=== PATIENT | male | born 1975 | race African-American/Black ===

== ENCOUNTER 2017-05-28 11:53 | Observation (INO) | payer OTHER ==
[~2017-05-28] VITALS: Ht 190.5 cm; Wt 114.3 kg
[2017-05-28] MEDS ORDERED: PANTOprazole SOD 40 MG TAB PO STA (12:14)
[2017-05-28] MEDS ORDERED: ASPIRIN 81 MG CHEW PO STA (12:14)
[2017-05-28] MEDS ORDERED: NITROGLYCERIN OINT 2% 1GM PACKET EXT ONE (12:15)
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
[2017-05-28] MEDS ORDERED: CLON0.5T3 PO (12:40)
[2017-05-28] MEDS ORDERED: SERT50TA PO (12:40)
[2017-05-28] MEDS ORDERED: HALO5TAB PO (12:40)
[2017-05-28] MEDS ORDERED: BENZ2TAB6 PO (12:40)
[2017-05-28] MEDS ORDERED: ASPCH81X PO (12:40)
[2017-05-28] MEDS ORDERED: ATEN50TA8 PO (12:40)
[2017-05-28] MEDS ORDERED: SERT-234 PO (12:40)
[2017-05-28] MEDS ORDERED: HALO2TAB PO (12:40)
[2017-05-28 12:41] LABS: HEMATOCRIT 38.4 % (42-52); MEAN CELL VOLUME 88.9 fL (80-100); MEAN CORPUSCULAR HEMOGLOBIN 31.5 pg (25-34); MEAN CORPUSCULAR HGB CONC 35.4 g/dl (32-36); MEAN PLATELET VOLUME 9.7 fL (7.4-10.4); PLATELET COUNT 283 K/uL (130-400); RED BLOOD COUNT 4.32 M/uL (4.7-6.1); WHITE BLOOD COUNT 5.18 K/uL (4.8-10.8)
[2017-05-28 12:51] LABS: PARTIAL THROMBOPLASTIN RATIO 1.2; PROTHROMBIN TIME (PATIENT) 10.6 SECONDS (9.0-12.0)
[2017-05-28 13:01] LABS: ALT/SGPT 33 U/L (12-78); AST/SGOT 20 U/L (15-37); BLOOD UREA NITROGEN 11 mg/dl (7-18); BUN/CREATININE RATIO 14.5 (10-20); CARBON DIOXIDE 31 mmol/L (21-32); CHLORIDE 106 mmol/L (98-107); CREATININE 0.76 mg/dl (0.60-1.40); GLUCOSE 78 mg/dl (70-99); POTASSIUM 3.4 mmol/L (3.5-5.1); SODIUM 143 mmol/L (136-145)
[2017-05-28 13:05] LABS: ALKALINE PHOSPHATASE 126 U/L (45-117); CKMB/CK RATIO 0.4 (0-3.0)
[2017-05-28 13:14] LABS: COMPLETE YES; EOSINOPHIL % 1.7 %; LYMPH ABS # 2.39 K/uL (1.2-3.4); LYMPHOCYTE % 46.1 %; NEUTROPHILS % 36.5 %; VARIANT LYM ABS # 0.63 K/uL; VARIANT LYMPHOCYTE % 12.2 %
--- NOTE | 2017-05-28 13:16 | DIAGNOSTIC IMAGING REPORT ---
CHEST ONE VIEW PORTABLE HISTORY: Atypical CHEST PAIN COMPARISON: None. FINDINGS: The lungs are clear. Cardiac silhouette is normal in size. No pleural effusions. No pneumothorax. IMPRESSION: No acute process. Electronically signed by: Vicente Julien M.D. 05/28/2017 1:15 PM Dictated Date/Time: 05/28/2017 1:12 PM
[2017-05-28] MEDS ORDERED: GLUCAGON FOR INJ 1 MG VIAL SQ PRN (14:00)
[2017-05-28] MEDS ORDERED: POLYETHYLENE (MIRALAX) 17 GM PACK PO PRN (14:00)
[2017-05-28] MEDS ORDERED: GLUCOSE 40% GEL 15 GM TUBE PO PRN (14:00)
[2017-05-28] MEDS ORDERED: GLUCOSE 10 TABS/TUBE PO PRN (14:00)
[2017-05-28] MEDS ORDERED: MAGNESIUM HYDROXIDE SUSP 30 ML UDC PO PRN (14:00)
[2017-05-28] MEDS ORDERED: DEXTROSE 50% 50 ML SYR IV PRN (14:00)
[2017-05-28] MEDS ORDERED: ONDANSETRON INJ 2 MG/ML 2 ML VIAL IV PRN (14:00)
--- NOTE | 2017-05-28 14:04 | History and Physical ---
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 It was a sharp substernal chest pain which created numbness and tingling down into the left arm, the pain lasted a few minutes and subsided when he went to his cell and layed down. He denies any radiation to the jaw, back or right arm. He admits to having a headache after this pain occurred throughout the morning. The patient mops as a daily occurrence, and is physically active with lifting weights, >225lbs on bench press and has never experienced this chest pain before. Pt reports that he had a second bout of pain while here but was not as severe and did not radiate anywhere. His mother at age 32 from [place]. He is unaware of any of her siblings with similar cardiac disease. He has three other siblings but does not know if they have cardiac disease either. Here in the ER his initial troponin is negative at 0.032, EKG was reviewed without signs of ischemia, although there was reported [facility]. Past Medical/Surgical History HTN DM II Bipolar disorder with psychotic features Anxiety Chronic tobacco smoker Family History Heart disease Social History Smoking Status: Current Every Day Smoker Drug Use: none Marital Status: single Occupational Status: unemployed Allergies Coded Allergies: No Known Allergies (Unverified , 05/28/17) Home Medications Scheduled Aspirin (Aspirin Chewable), 81 MG PO DAILY Atenolol (Tenormin), 50 MG PO DAILY Benztropine Mesylate (Benztropine Mesylate), 1 TAB PO HS Clonazepam (Klonopin), 1 MG PO HS Haloperidol (Haloperidol), 1 TAB PO HS Haloperidol (Haldol), 1 TAB PO HS Sertraline (Zoloft), 100 MG PO HS Sertraline (Zoloft), 1 TAB PO HS Review of Systems Constitutional: + problem reported (headache), No fever, No chills, No sweats Eyes: No worsening of vision, No diplopia ENT: No hearing loss Respiratory: No cough, No sputum, No wheezing, No shortness of breath, No dyspnea on exertion, No dyspnea at rest Cardiovascular: No chest pain, No edema, No palpitations Abdomen: No pain, No nausea, No vomiting, No diarrhea, No constipation (last BM was yesterday) Musculoskeletal: No joint pain, No swelling, No calf pain Genitourinary - Male: No hematuria, No dysuria Neurologic: + numbness/tingling (see HPI), No weakness, No balance problems Psychiatric: + anxiety, + problem reported (bipolar disorder) Integumentary: No rash, No itch Physical Exam Vital Signs Date Time Temp Pulse Resp B/P (MAP) Pulse Ox O2 Delivery O2 Flow Rate FiO2 05/28/17 12:58 59 15 172/121 99 05/28/17 12:53 60 18 99 05/28/17 12:38 62 21 98 05/28/17 12:25 98 Room Air 05/28/17 12:23 63 17 98 05/28/17 12:18 99 Room Air 05/28/17 12:17 99 Room Air 05/28/17 12:17 99 Room Air 05/28/17 12:15 61 05/28/17 12:08 185/117 05/28/17 11:58 37.1 63 16 179/102 98 Room Air General Appearance: WD/WN, no apparent distress Head: normocephalic, atraumatic Eyes: PERRL, EOMI ENT: hearing grossly normal, pharynx normal Neck: supple, thyroid normal Respiratory/Chest: chest non-tender, lungs clear, no respiratory distress, no accessory muscle use Cardiovascular: regular rate, rhythm, no murmur Abdomen/GI: normal bowel sounds, non tender, soft Back: normal inspection, no CVA tenderness Extremities/Musculoskelatal: normal inspection, no calf tenderness Neurologic/Psych: alert, normal mood/affect, oriented x 3 Skin: normal color, warm/dry Diagnostics Laboratory Results Results Past 24 Hours Test 05/28/17 12:15 Range/Units White Blood Count 5.18 4.8-10.8 K/uL Red Blood Count 4.32 4.7-6.1 M/uL Hemoglobin 13.6 14.0-18.0 g/dL Hematocrit 38.4 42-52 % Mean Corpuscular Volume 88.9 80-100 fL Mean Corpuscular Hemoglobin 31.5 25-34 pg Mean Corpuscular Hemoglobin Concent 35.4 32-36 g/dl Platelet Count 283 130-400 K/uL Mean Platelet Volume 9.7 7.4-10.4 fL RDW Standard Deviation 44.7 36.4-46.3 fL RDW Coefficient of Variation 13.5 11.5-14.5 % Neutrophils % (Manual) 36.5 % Lymphocytes % (Manual) 46.1 % Variant Lymphocytes % (manual) 12.2 % Monocytes % (Manual) 3.5 % Eosinophils % (Manual) 1.7 % Neutrophils # (Manual) 1.89 1.4-6.5 K/uL Total Absolute Neutrophils 1.89 1.4-6.5 K/uL Lymphocytes # (Manual) 2.39 1.2-3.4 K/uL Absolute Variant Lymphocytes 0.63 K/uL Total Absolute Lymphocytes 3.02 1.2-3.4 K/uL Monocytes # (Manual) 0.18 0.11-0.59 K/uL Eosinophils # (Manual) 0.09 0-0.5 K/uL Red Blood Cell Morphology Unremarkable Prothrombin Time 10.6 9.0-12.0 SECONDS Prothromb Time International Ratio 1.0 0.9-1.1 Activated Partial Thromboplast Time 31.2 21.0-31.0 SECONDS Partial Thromboplastin Ratio 1.2 Sodium Level 143 136-145 mmol/L Potassium Level 3.4 3.5-5.1 mmol/L Chloride Level 106 98-107 mmol/L Carbon Dioxide Level 31 21-32 mmol/L Anion Gap 6.0 3-11 mmol/L Blood Urea Nitrogen 11 7-18 mg/dl Creatinine 0.76 0.60-1.40 mg/dl Est Creatinine Clear Calc Drug Dose 173.2 ml/min Estimated GFR () 129.5 Estimated GFR (Non- 111.7 BUN/Creatinine Ratio 14.5 10-20 Random Glucose 78 70-99 mg/dl Calcium Level 9.0 8.5-10.1 mg/dl Total Bilirubin 0.4 0.2-1 mg/dl Direct Bilirubin < 0.1 0-0.2 mg/dl Aspartate Amino Transf (AST/SGOT) 20 15-37 U/L Alanine Aminotransferase (ALT/SGPT) 33 12-78 U/L Alkaline Phosphatase 126 45-117 U/L Total Creatine Kinase 167 39-308 U/L Creatine Kinase MB 0.7 0.5-3.6 ng/ml Creatine Kinase MB Ratio 0.4 0-3.0 Troponin I 0.032 0-0.045 ng/ml Total Protein 7.5 6.4-8.2 gm/dl Albumin 3.5 3.4-5.0 gm/dl Lipase 170 73-393 U/L Diagnostic Radiology CHEST ONE VIEW PORTABLE HISTORY: Atypical CHEST PAIN COMPARISON: None. FINDINGS: The lungs are clear. Cardiac silhouette is normal in size. No pleural effusions. No pneumothorax. IMPRESSION: No acute process. Electronically signed by: Vicente Julien M.D. 05/28/2017 1:15 PM Dictated Date/Time: 05/28/2017 1:12 PM The status of this report is Signed. 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 Chest pain - Admit to tele for observation - Trend cardiac biomarkers x 2 more sets. Initial troponin was 0.032 - Check lipid panel - 2D echo - EKG reviewed showing no signs of ischemia currently, although per report from inferior and lateral T wave inversion on ekg at [facility] - follow am EKG - Cont nitropaste Q6H for now - headache was present prior to administration of nitro - Received asa 324 mg in the ED, continue home meds of ASA 81 mg QAM and atenolol 50 mg QAM DM II - ISS with accuchecks Q6H while NPO or Q4H with diet ordered - not on any medications as an outpatient for insulin control - Checking Hgb A1C - Allow diabetic/heart healthy diet HTN - Continue on atenolol 50 mg daily - BP very high initially so will order hydralazine prn with parameters. Bipolar disorder with psychotic features Anxiety - Continue sertraline 150 mg QHS, haldol 7 mg QHS and clonazepam 1 mg QHS for sleep - Pt reports taking cogentin but unknown dose- will need to add this to med rec list. - Has hx of auditory and visual hallucinations when not on medications but has been stable recently. Denies any suicidal or homicial ideations DVT ppx: Teds, scds, heparin subq CODE STATUS: FULL CODE Disposition: Return to [facility] when medically stable. I agree with PA assessment and plan Noted accelerated HTN Hydralazine PRN Reports chest pain with mopping floor Strong fam hx in addition to risk factor of diabetes Obtain ECHO at this time EKG NSR in ER Level of Care Telemetry Resuscitation Status FULL RESUSCITATION VTE Prophylaxis VTE Risk Assessment Done? Y/N: Yes Risk Level: Low Given or contraindicated: Unfractionated heparin SQ, T.E.D. Stockings, SCD's
[2017-05-28 14:11] VITALS: Ht 190.5 cm; Wt 114.3 kg
[2017-05-28] MEDS ORDERED: METOPROLOL TARTRATE 1 MG/ML VIAL IV. PRN (14:15)
[2017-05-28] MEDS ORDERED: HydrALAZINE HCL 20 MG/ML VIAL IV. PRN ×2 (14:15→18:30)
[2017-05-28 14:50] VITALS: O2SAT 99
[2017-05-28 15:13] VITALS: BP_SYST 122; BP_SYST 199; BP_DIAS 122; PULSE 60; PULSE 64; TEMP 36.9; O2SAT 100
[2017-05-28] MEDS ORDERED: HydrALAZINE HCL 20 MG/ML VIAL ONE (15:38)
[2017-05-28] MEDS ORDERED: IV FLUIDS COMPLETED PRN (17:00)
[2017-05-28] MEDS: HEPARIN SOD 5000 UNIT/0.5 ML CARP SQ SCH ×2 (17:22→23:52)
[2017-05-28] MEDS: INSULIN ASPART 100 UNITS/ML 3 ML PEN SC SCH ×2 (17:22→20:10)
[2017-05-28] MEDS: NITROGLYCERIN OINT 2% 1GM PACKET EXT SCH ×2 (18:00→23:53)
[2017-05-28] MEDS ORDERED: HYDROCHLOROTHIAZIDE 25 MG TAB PO STA (18:13)
[2017-05-28] MEDS ORDERED: POTASSIUM CHLORIDE 10 MEQ TABCR PO STA (18:13)
[2017-05-28 18:18] VITALS: BP 185/121; PULSE 72
[2017-05-28 20:03] VITALS: BP 153/92; PULSE 83; TEMP 36.9; O2SAT 98
[2017-05-28] MEDS ORDERED: SERTRALINE HCL 100 MG TAB PO SCH (21:00)
[2017-05-28] MEDS ORDERED: CLONAZEPAM 1 MG TAB PO SCH (21:00)
[2017-05-28] MEDS ORDERED: HALOPERIDOL 5 MG TAB PO SCH (21:00)
[2017-05-28] MEDS ORDERED: BENZTROPINE MESYLATE 1 MG TAB PO SCH (21:00)
[2017-05-28] MEDS ORDERED: HALOPERIDOL 1 MG TAB PO SCH (21:00)
[2017-05-28 23:48] VITALS: BP 146/82; PULSE 67; TEMP 36.7; O2SAT 98
[2017-05-28] MEDS: ACETAMINOPHEN 325 MG TAB PO PRN (23:53)
[2017-05-29 03:42] VITALS: BP 131/86; PULSE 65; TEMP 36.3; O2SAT 98
[2017-05-29] MEDS: NITROGLYCERIN OINT 2% 1GM PACKET EXT SCH (06:03)
[2017-05-29] MEDS: HEPARIN SOD 5000 UNIT/0.5 ML CARP SQ SCH (06:04)
[2017-05-29] MEDS: ACETAMINOPHEN 325 MG TAB PO PRN ×2 (06:08→10:56)
[2017-05-29 06:44] LABS: HEMATOCRIT 38.5 % (42-52); MEAN CELL VOLUME 89.3 fL (80-100); MEAN CORPUSCULAR HEMOGLOBIN 30.2 pg (25-34); MEAN CORPUSCULAR HGB CONC 33.8 g/dl (32-36); MEAN PLATELET VOLUME 9.6 fL (7.4-10.4); PLATELET COUNT 273 K/uL (130-400); RED BLOOD COUNT 4.31 M/uL (4.7-6.1); WHITE BLOOD COUNT 5.01 K/uL (4.8-10.8)
[2017-05-29 07:06] VITALS: BP 143/87; PULSE 65; TEMP 36.5; O2SAT 98
[2017-05-29 07:15] LABS: BASO % 0.4 %; BASO ABS # 0.02 K/uL (0-0.2); COMPLETE YES; EOS % 4.4 %; IG% 0.2 %; LYMPH % 50.3 %; LYMPH ABS # 2.52 K/uL (1.2-3.4); MONO % 6.4 %; NEUT % 38.3 %
[2017-05-29 07:18] LABS: BUN/CREATININE RATIO 14.7 (10-20); CALCIUM 8.8 mg/dl (8.5-10.1); CREATININE 0.68 mg/dl (0.60-1.40); POTASSIUM 3.2 mmol/L (3.5-5.1)
[2017-05-29 07:22] LABS: CHOLESTEROL/HDL RATIO 4.8
[2017-05-29] MEDS: INSULIN ASPART 100 UNITS/ML 3 ML PEN SC SCH ×2 (08:06→12:09)
[2017-05-29] MEDS ORDERED: NITROGLYCERIN 0.4 MG SL PER TAB CHARGE SL PRN (08:30)
[2017-05-29] MEDS ORDERED: ASPIRIN 81 MG ECTAB PO SCH (09:00)
[2017-05-29] MEDS ORDERED: ATORVASTATIN 40 MG TAB PO SCH (09:00)
[2017-05-29] MEDS ORDERED: LISINOPRIL 10 MG TAB PO SCH (09:00)
[2017-05-29] MEDS ORDERED: POTASSIUM CHLORIDE 10 MEQ TABCR PO ONE (09:00)
[2017-05-29] MEDS ORDERED: LPT40 PO (11:41)
[2017-05-29] MEDS ORDERED: LSN10 PO (11:41)
--- NOTE | 2017-05-29 11:52 | Discharge Instructions ---
Discharge Instructions Date of Service May 29, 2017. Admission Reason for Admission: Substernal Chest Pain Discharge Discharge Diagnosis / Problem: chest pain - most likely muscular (see below) Discharge Goals Goal(s): Diagnostic testing Activity Recommendations Activity Limitations: resume your previous activity (take it easy until the stress test is done) . Instructions / Follow-Up Instructions / Follow-Up chest pain -as we discussed, it is most likely that your chest pain was muscular - the muscles that attach to your ribs can cause exactly the kind of symptoms you were feeling ---because of your risks for this being cardiac, we evaluated to make sure this wasn't heart attack -this is usually a two-step process - first to make sure it wasn't a heart attack, and second to make sure it is not angina (a "heart attack waiting to happen") -your cardiac enzymes were all negative, which is very reassuring that this wasn't a heart attack (with the hindsight of getting multiple sets of cardiac enzymes like we did, it's actually almost 100% accurate that this wasn't a heart attack) -to rule out angina/"heart attack waiting to happen" we'll need to get you set up for a stress test - they should be able to make this happen for this week. once it's negative, then we'll be able to be very reassured that things were all muscular with the pain the whole time cardiac risk factors -while this particular episode appears to have been muscular, certainly you carry a lot of risks for "clogging arteries" that we want to manage to keep you from ever having a real event cholesterol: -your cholesterol numbers are too high for your risks. while eating healthier (mostly fruits and vegetables, lean meats, and avoiding "bad" ( saturated) fats) will help a good deal, right now your cholesterol numbers would benefit from a medication to protect arteries more. we're starting you on 40mg of atorvastatin (lipitor) to both lower your cholesterols and protect your arteries. usually people tolerate it really well. a very small number of people get muscle aches related to it, which go away by stopping the medicine. the doctors at the [facility] will need to check follow up labs (liver enzymes and repeat cholesterol levels) in late August or early September to follow up on how well the medicine is working blood pressure: -your blood pressure numbers were a bit too high here as well. we want you to continue on the atenolol, but need to add a medicine to the mix. lisinopril lowers blood pressure by opening up the blood vessels leading to your kidneys some, reducing pressure through your body. because of how it acts, it typically takes strain off your heart and is actually protective of kidneys. a very small percentage of people don't tolerate it and have to stop it --> the doctors at the [facility] will need to check labs in about a week to make sure you're not in that small percentage of people who's kidneys don't like the medicine (again the majority it's actually quite protective). the other reason people sometimes have to stop lisinopril is about 5% of people get a dry, annoying cough - which goes away if you stop the medicine diabetes: -we worry about diabetes because high sugar clogs small arteries. the higher your sugar runs, and the longer it runs high, the more you clog up blood vessels. -your A1c (a reading of the three month average of your sugars) was still pending at the time of discharge. this should be reported out by the end of the day, and the [facility] team will be able to review the results with you -typically the mainstay of good sugar control starts with minimizing starchy and sugary foods. without diet control, typically medications can only do so much. follow ups that need to occur: a) Stress echo - this coming week b) Basic metabolic panel (labwork) - 1-2 weeks c) liver enzymes, repeat cholesterol, repeat A1c levels - 3-4 months Current Hospital Diet Patient's current hospital diet: Diabetes Type 2 Diet Discharge Diet Recommended Diet: Diabetes Type 2 Diet Pending Studies Studies pending at discharge: no Laboratory Results Hemoglobin A1c Test 05/29/17 06:22 Range/Units Lipid Panel Test 05/29/17 06:22 Range/Units Triglycerides Level 102 0-150 mg/dl Cholesterol Level 160 0-200 mg/dl HDL Cholesterol 33 mg/dl Cholesterol/HDL Ratio 4.8 LDL Cholesterol, Calculated 107 mg/dl Medical Emergencies . Who to Call and When: Medical Emergencies: If at any time you feel your situation is an emergency, please call 911 immediately. . Non-Emergent Contact Non-Emergency issues call your: Primary Care Provider . . "Provider Documentation" section prepared by Mehrdad Ruiz. . VTE Core Measure Inpt VTE Proph given/why not?: Unfractionated heparin NEYMAR, TRobelEObey. Jaja, SCD 's
[2017-05-29 12:00] VITALS: BP 132/82; PULSE 63; TEMP 37.1; O2SAT 97
[2017-05-29 14:11] VITALS: BP 132/82; PULSE 63; TEMP 37.1; O2SAT 97
--- NOTE | 2017-05-29 14:56 | Discharge Summary ---
Discharge Summary Date of Service May 29, 2017. Discharge Summary Admission Date: May 28, 2017 at 13:52 Discharge Date: May 29, 2017 Discharge Disposition: Home ([facility] Principal Diagnosis: chest pain - appearing muscular Medication Reconciliation New Medications: Atorvastatin (Atorvastatin Calcium) 40 Mg Tab 40 MG PO QAM, #30 TAB Lisinopril (Zestril) 10 Mg Tab 10 MG PO QAM, #30 TAB Continued Medications: Aspirin (Aspirin Chewable) 81 Mg Chew 81 MG PO DAILY Atenolol (Tenormin) 50 Mg Tab 50 MG PO DAILY, TAB Benztropine Mesylate (Benztropine Mesylate) 2 Mg Tab 1 TAB PO HS for 30 Days, #30 TAB 2 Refills Clonazepam (Klonopin) 0.5 Mg Tab 1 MG PO HS, TAB Haloperidol (Haloperidol) 2 Mg Tab 1 TAB PO HS for 30 Days, #30 TAB TOTAL DOSE 7MG Haloperidol (Haldol) 5 Mg Tab 1 TAB PO HS for 30 Days, #30 TAB 1 Refill TOTAL DOSE 7MG Sertraline (Zoloft) 100 Mg Tab 100 MG PO HS, TAB TOTAL DOSE TO 150MG Sertraline (Zoloft) 50 Mg Tab 1 TAB PO HS for 30 Days, TAB 2 Refills TOTAL DOSE OF 150MG Discharge Exam Physical Exam: General Appearance: no apparent distress Eyes: EOMI ENT: hearing grossly normal Neck: trachea midline Respiratory/Chest: no respiratory distress, no accessory muscle use Extremities: normal inspection Neurologic/Psychiatric: chart changer II-XII nml as tested, alert, normal mood/affect Skin: normal color, warm/dry Hospital Course high risk (DM, HTN, hyperlipid, family history, tobacco abuse, male) chest pain -no IA - serial EKG's unchanged, serial enzymes negative ----for stress echo as outpatient in near future risk modification: uncontrolled HTN -- added lisinopril 10mg - check BMP 1-2 weeks uncontrolled dyslipidemia (particularly non-HDL) - atorvastatin 40mg, LFT/ lipids 3-4 months DM - A1c pending - please follow up on results accordingly Total Time Spent: Less than 30 minutes This includes examination of the patient, discharge planning, medication reconciliation, and communication with other providers. Discharge Instructions Please refer to the electronic Patient Visit Report (Discharge Instructions) for additional information. Additional Copies To [facility]
--- NOTE | 2017-05-29 18:16 | ECHOCARDIOGRAM REPORT ---
*NOTICE TO RECEIVING LIBERTARIAN AGENCY This information is strictly Confidential and protected under [place] law. [place] law prohibits you from making any further disclosure of this information unless further disclosure is expressly permitted by the written consent of the person to whom it pertains or is authorized by law. A general authorization for the release of medical or other information is not sufficient for this purpose. Hospital accepts no responsibility if the information is made available to any other person, INCLUDING THE PATIENT. Interpretation Summary * Name: CHELSEY ULLOA [id number] Study Date: 05/29/2017 06:29 AM BP: 186/123 mmHg * Patient Location: C.2T\S\E215\S\1 HR: 64 * : 1975 (M/d/yyyy) Gender: Male Height: 75 in * Age: 42 yrs Ethnicity: AA Weight: 259 lb * Ordering Physician: Moon Landin * Referring Physician: [facility] Vincentshahana * Performed By: Marie Kaur RDCS * * Reason For Study: Chest pain * BSA: 2.4 m2 * -- Conclusions -- * 1. Normal left ventricular size and systolic function. EF 55-60%. No regional wall motion abnormalities. Moderate concentric left ventricular hypertrophy. Type 1 diastolic dysfunction. * 2. No significant valvular abnormalities visualized. * 3. No prior study available for comparison. Procedure Details * A complete two-dimensional transthoracic echocardiogram was performed (2D, M-mode, Doppler and color flow Doppler). Left Ventricle * Normal left ventricular size and systolic function. EF 55-60%. No regional wall motion abnormalities. Moderate concentric left ventricular hypertrophy. Type 1 diastolic dysfunction. Right Ventricle * The right ventricle is normal in size and function. * The right ventricular systolic function is normal as assessed by tricuspid annular plane systolic excursion (TAPSE) (normal >1.5 cm). Atria * The left atrial size is normal. * Right atrial size is normal. * There is no evidence of atrial septal defect, but resolution does not allow assessment for a patent foramen ovale. Mitral Valve * The mitral valve leaflets appear normal. There is no evidence of stenosis, fluttering, or prolapse. * There is trace mitral regurgitation. Tricuspid Valve * The tricuspid valve is not well visualized, but is grossly normal. * There is no tricuspid stenosis. * There is trace tricuspid regurgitation. Aortic Valve * The aortic valve is trileaflet. * No hemodynamically significant valvular aortic stenosis. * Trace aortic regurgitation. Pulmonic Valve * The pulmonic valve is not well seen, but is grossly normal. * There is no pulmonic valvular stenosis. * Trace pulmonic valvular regurgitation. Great Vessels * The aortic root is normal size. Pericardium/Pleural * There is no pericardial effusion. Great Vessels * Mildly blunted pulmonary venous flow pattern. * Normal inferior vena cava size and collapsability with sniff indicates a normal right atrial pressure of 3 mmHg MMode 2D Measurements and Calculations IVSd 1.5 cm LVIDd 5.0 cm LVIDs 3.1 cm LVPWd 1.5 cm IVS/LVPW 1.0 FS 38.0 % EDV(Teich) 118.1 ml ESV(Teich) 37.9 ml EF(Teich) 67.9 % EDV(cubed) 124.8 ml ESV(cubed) 29.8 ml EF(cubed) 76.1 % LV mass(C)d 318.2 grams LV mass(C)dI 129.9 grams/m\S\2 SV(Teich) 80.2 ml SI(Teich) 32.7 ml/m\S\2 SV(cubed) 95.0 ml SI(cubed) 38.8 ml/m\S\2 Ao root diam 3.5 cm Ao root area 9.7 cm\S\2 ACS 2.7 cm LA dimension 3.6 cm asc Aorta Diam 3.4 cm LA/Ao 1.0 LVOT diam 2.0 cm LVOT area 3.1 cm\S\2 LVAd ap4 35.4 cm\S\2 LVLd ap4 8.9 cm EDV(MOD-sp4) 120.7 ml EDV(sp4-el) 120.5 ml LVAs ap4 22.1 cm\S\2 LVLs ap4 7.5 cm ESV(MOD-sp4) 56.8 ml ESV(sp4-el) 55.5 ml EF(MOD-sp4) 53.0 % EF(sp4-el) 53.9 % LVAd ap2 22.5 cm\S\2 LVLd ap2 7.6 cm EDV(MOD-sp2) 56.9 ml EDV(sp2-el) 57.1 ml LVAs ap2 13.1 cm\S\2 LVLs ap2 6.6 cm ESV(MOD-sp2) 23.4 ml ESV(sp2-el) 22.0 ml EF(MOD-sp2) 59.0 % EF(sp2-el) 61.6 % LVLd %diff -20.85 % EDV(MOD-bp) 96.6 ml LVLs %diff -14.74 % ESV(MOD-bp) 34.2 ml EF(MOD-bp) 64.5 % SV(MOD-sp4) 63.9 ml SI(MOD-sp4) 26.1 ml/m\S\2 SV(MOD-sp2) 33.6 ml SI(MOD-sp2) 13.7 ml/m\S\2 SV(MOD-bp) 62.3 ml SI(MOD-bp) 25.4 ml/m\S\2 SV(sp4-el) 65.0 ml SI(sp4-el) 26.5 ml/m\S\2 SV(sp2-el) 35.2 ml SI(sp2-el) 14.4 ml/m\S\2 Doppler Measurements and Calculations MV E max harry 62.6 cm/sec MV A max harry 68.9 cm/sec MV E/A 0.91 MV dec time 0.22 sec Ao V2 max 146.8 cm/sec Ao max PG 8.6 mmHg Ao max PG (full) 3.6 mmHg CHANG(V,A) 2.4 cm\S\2 CHANG(V,D) 2.4 cm\S\2 LV V1 max PG 5.1 mmHg LV V1 max 112.5 cm/sec TV E max harry 48.5 cm/sec PA V2 max 104.5 cm/sec PA max PG 4.4 mmHg PA acc slope 436.7 cm/sec\S\2 PA acc time 0.17 sec PI end-d harry 97.7 cm/sec TR max harry 184.6 cm/sec RVSP(TR) 16.6 mmHg RAP systole 3.0 mmHg PA pr(Accel) 4.5 mmHg
[2017-05-30 06:58] LABS: ESTIMATED AVERAGE GLUCOSE 108 mg/dl; HA1C FLAG Normal (Normal)
== END 2017-05-29 15:11 | disposition home or self-care (01) ==
LOC: C.EDC 11:56 → C.2T 13:52 → ENRESERV 14:16
PROVIDERS: ADMIT Hospitalist; ATTEND Family Medicine
DX: R07.2 Precordial pain (principal); R94.31 Abnormal electrocardiogram [ECG] [EKG]; Z82.49 Family history of ischemic heart disease and other diseases of the circulatory system; E11.9 Type 2 diabetes mellitus without complications; I10 Essential (primary) hypertension; F17.200 Nicotine dependence, unspecified, uncomplicated; Z79.82 Long term (current) use of aspirin; F31.5 Bipolar disorder, current episode depressed, severe, with psychotic features

== ENCOUNTER 2019-09-24 09:31 | Inpatient (IN) ==
--- NOTE | 2019-09-24 10:46 | Emergency Department Note ---
History of Present Illness General Chief complaint: Chest Pain Time Seen by Provider: 09/24/19 10:05 History of Present Illness Maximum Pain Intensity: 0 This is a 44-year-old male that presents to the emergency department via chief customer officer escort with complaints of "chest pain". Patient notes that he awoke around 6 AM with some chest pain that radiates to the left shoulder. He notes that he received aspirin and nitroglycerin at [facility] and then was sent here for further evaluation and management. He states he has a history of heart disease, diabetes, hypertension, hypercholesterolemia. He has never had an VA that he is aware of or cardiac stent placement. No history of PE. He is currently pain-free. Home Medications Home Medications Medication Instructions Recorded Confirmed Type amlodipine 5 mg PO HS 09/24/19 09/24/19 History aripiprazole 10 mg PO HS 09/24/19 09/24/19 History aspirin [Aspirin Childrens] 81 mg PO HS 09/24/19 09/24/19 History atenolol 50 mg PO HS 09/24/19 09/24/19 History atorvastatin 40 mg PO HS 09/24/19 09/24/19 History benztropine 2 mg PO HS 09/24/19 09/24/19 History lisinopril 40 mg PO HS 09/24/19 09/24/19 History sertraline [Zoloft] 200 mg PO HS 09/24/19 09/24/19 History trazodone 200 mg PO HS 09/24/19 09/24/19 History Allergies Allergy/AdvReac Type Severity Reaction Status Date / Time No Known Allergies Allergy Unverified 09/24/19 11:15 Past Med/Surg History Medical History (Updated 09/24/19 @ 12:15 by Lilly Bravo MD) Diabetes mellitus Hypertension (Acute) Surgical History No pertinent past surgical history Social History Preferred Language: Croatian Communication Ability: Effective Beliefs That Will Affect Care: Christian Christian Beliefs: Uatsdin Current Living Situation: Other Current Living Situation Comment: [facility] Other Information That Helps Us Care for You: No Feels Safe at Home: Yes Smoking Status: Former smoker Hx Alcohol Use: No Hx Substance Use: No Review of Systems A total of 10 systems reviewed and were otherwise negative Physical Exam Vital Signs Vital Signs - 24 hr 09/24/19 09:38 09/24/19 10:10 09/24/19 10:18 Temperature 36.6 C Temperature Source Oral Pulse Rate 72 63 Pulse Rate [Apical] Pulse Rate from SpO2 Sensor 70 64 Respiratory Rate 13 14 Respiratory Effort / Characteristics Non-Labored Respiratory Depth Normal Blood Pressure 162/106 H 166/107 H Blood Pressure [Right Arm] Blood Pressure Mean 122 134 Blood Pressure Mean [Right Arm] Blood Pressure Position Sitting Blood Pressure Position [Right Arm] Pulse Oximetry 99 98 98 Oxygen Delivery Method Room Air Room Air Sepsis Recent Fever Within 48 Hours No Sepsis New/Unexplained Change in Mental Status No Sepsis Action Taken by Nursing No Action Required 09/24/19 10:30 09/24/19 11:00 09/24/19 11:30 Temperature Temperature Source Pulse Rate 65 64 63 Pulse Rate [Apical] 63 Pulse Rate from SpO2 Sensor 64 66 63 Respiratory Rate 18 13 16 Respiratory Effort / Characteristics Non-Labored Respiratory Depth Normal Blood Pressure 166/109 H 191/119 H 187/114 H Blood Pressure [Right Arm] 166/109 H Blood Pressure Mean 123 135 142 Blood Pressure Mean [Right Arm] 128 Blood Pressure Position Blood Pressure Position [Right Arm] Sitting Pulse Oximetry 100 97 98 Oxygen Delivery Method Room Air Sepsis Recent Fever Within 48 Hours Sepsis New/Unexplained Change in Mental Status Sepsis Action Taken by Nursing 09/24/19 12:00 09/24/19 12:30 Temperature Temperature Source Pulse Rate 67 69 Pulse Rate [Apical] Pulse Rate from SpO2 Sensor 66 69 Respiratory Rate 17 15 Respiratory Effort / Characteristics Respiratory Depth Blood Pressure 179/110 H 178/112 H Blood Pressure [Right Arm] Blood Pressure Mean 130 133 Blood Pressure Mean [Right Arm] Blood Pressure Position Blood Pressure Position [Right Arm] Pulse Oximetry 98 97 Oxygen Delivery Method Sepsis Recent Fever Within 48 Hours Sepsis New/Unexplained Change in Mental Status Sepsis Action Taken by Nursing VITAL SIGNS - Vital signs and nursing notes were reviewed. Stable and afebrile. GENERAL - 44-year-old male appearing his stated age who is in no acute distress. Communicates well with provider and answers questions appropriately. SKIN - Without rashes. HEAD - NC/AT. EYES - PERRL with EOMI bilaterally. Sclera anicteric. EARS - No deformities of external structures noted on gross examination bilaterally. NOSE - Midline and without cyanosis. No epistaxis or purulent drainage noted. MOUTH/OROPHARYNX - Without perioral cyanosis. NECK - Neck with FROM. LUNGS - Chest wall symmetric without accessory muscle use, intercostals retractions, or central cyanosis. Normal vesicular breath sounds CTA B/L. No wheezes, rales, or rhonchi appreciated. CARDIAC - RRR with S1/S2. No murmur, rubs, or gallops appreciated. EXTREMITIES - No clubbing or peripheral cyanosis. No pretibial edema present. +5/5 strength noted in UE/LE bilaterally. NEUROLOGIC - Cranial nerves II through XII grossly intact. PSYCH - A&O, and cooperates fully with examiner. Pt is very pleasant and interacts well with examiner. Medical Decision Making Laboratory Data Result diagrams: 09/24/19 10:30 09/24/19 10:30 Lab Results 09/24/19 09/24/19 09/24/19 Range/Units 10:30 10:30 10:30 WBC 5.00 (4.8-10.8) K/uL RBC 4.24 L (4.7-6.1) M/uL Hgb 12.6 L (14.0-18.0) g/dL Hct 37.6 L (42-52) % MCV 88.7 (80-100) fL MCH 29.7 (25-34) pg MCHC 33.5 (32-36) g/dL RDW Std Deviation 44.0 (36.4-46.3) fL RDW Coeff of Kiersten 13.6 (11.5-14.5) % Plt Count 311 (130-400) K/uL MPV 9.5 (7.4-10.4) fL Immature Gran % (Auto) 0.0 % Neut % (Auto) 49.2 % Lymph % (Auto) 40.6 % [place] % (Auto) 6.6 % Eos % (Auto) 3.4 % Baso % (Auto) 0.2 % Immature Gran # (Auto) 0.00 (0.00-0.02) K/uL Neut # (Auto) 2.46 (1.4-6.5) K/uL Lymph # (Auto) 2.03 (1.2-3.4) K/uL [place] # (Auto) 0.33 (0.11-0.59) K/uL Eos # (Auto) 0.17 (0-0.5) K/uL Baso # (Auto) 0.01 (0-0.2) K/uL PT 10.4 (9.0-12.0) Seconds INR 1.0 (0.9-1.1) APTT 28.2 (21.0-31.0) Seconds PTT Ratio 1.0 Sodium 138 (136-145) mmol/L Potassium 3.5 (3.5-5.1) mmol/L Chloride 104 (98-107) mmol/L Carbon Dioxide 32 (21-32) mmol/L Anion Gap 2.0 L (3-11) BUN 12 (7-18) mg/dl Creatinine 0.82 (0.6-1.4) mg/dl Est Cr Clr Drug Dosing 175.6 ml/min Est GFR ( Amer) 123.8 Est GFR (Non-Af Amer) 106.8 BUN/Creatinine Ratio 14.4 (10-20) Glucose 113 H (70-99) mg/dl Calcium 8.4 L (8.5-10.1) mg/dl Magnesium 2.0 (1.8-2.4) mg/dl Total Bilirubin 0.5 (0.2-1) mg/dl AST 15 (15-37) U/L ALT 33 (12-78) U/L Alkaline Phosphatase 124 H (45-117) U/L Troponin I 0.061 H* (0-0.045) ng/ml Total Protein 7.6 (6.4-8.2) gm/dl Albumin 3.4 (3.4-5.0) gm/dl Globulin 4.2 H (2.5-4.0) gm/dl Albumin/Globulin Ratio 0.8 L (0.9-2) Lipase 174 (73-393) U/L TSH 2.030 (0.300-4.500) uIu/ml Imaging Data Radiologist's Impression: XR chest 1V portable HISTORY: Atypical chest pain COMPARISON: Chest 05/28/2017. FINDINGS: The lungs are clear. Cardiac silhouette is normal in size. No pleural effusions. No pneumothorax. IMPRESSION: No acute process. ACT 112: Negative or not required by law. Electronically signed by: Vicente Julien M.D. 09/24/2019 11:17 AM MDM Narrative Patient was seen and evaluated as above in room B5. Review was performed of nursing notes and vital signs. After obtaining a thorough history and physical examination the above work up was performed. He presents to us today with some chest pain. It began this morning around 6 AM. It has resolved since he is received aspirin nitroglycerin prehospital while in the [facility] where he is incarcerated. On examination he is hypertensive, but no longer has chest pain. Chest x-ray was obtained and as above. EKG on arrival reveals normal sinus rhythm, rate of 68 bpm. QTc 472. There is no ST elevation. This was compared to EKG of November 11, 2018. I do believe that the patient should be admitted for further evaluation and management given his elevated troponin, heart score, and risk factors. Please refer to further documentation regarding his stay. Case discussed with the hospitalist. Please refer to further documentation regarding his stay. Heart score: Minimum of 6. This is comprised of the patient's age, moderately suspicious history, troponin elevation, and multitude of risk factors. GCS: 15 In the evaluation and treatment of this patient, the following differential diagnoses were considered: VA, ASC, Dysrhythmia, Angina, Mediastinitis, GERD, Esophagitis, PE, Pneumonia, Bronchitis, Costochondritis, Rib Fracture, Zoster. Impression & Plan Chest pain, Elevated troponin Discharge Plan Visit Data Chief Complaint: Chest Pain ED Provider: Mehrdad Cornejo ED Midlevel Provider: Dinesh Bustamante Discharge Problem: Chest pain, Elevated troponin Forms Stand Alone Forms: Call Back Authorization, [facility] Prescriptions Prescriptions: No Action atorvastatin 40 mg Tablet 40 mg PO HS RF: 0 sertraline [Zoloft] 100 mg Tablet 200 mg PO HS RF: 0 amlodipine 5 mg Tablet 5 mg PO HS RF: 0 trazodone 100 mg Tablet 200 mg PO HS RF: 0 benztropine 1 mg Tablet 2 mg PO HS RF: 0 aspirin [Aspirin Childrens] 81 mg Tablet,Chewable 81 mg PO HS RF: 0 lisinopril 40 mg Tablet 40 mg PO HS RF: 0 atenolol 50 mg Tablet 50 mg PO HS RF: 0 aripiprazole 10 mg Tablet 10 mg PO HS RF: 0
[2019-09-24 10:54] LABS: Basophils # (auto) 0.01 K/uL (0-0.2); Basophils % (auto) 0.2 %; Eosinophils # (auto) 0.17 K/uL (0-0.5); Eosinophils % (auto) 3.4 %; Hematocrit (blood only) 37.6 % (42-52); Hemoglobin 12.6 g/dL (14.0-18.0); Lymphocytes # (auto) 2.03 K/uL (1.2-3.4); Lymphocytes % (auto) 40.6 %; Mean Corpuscular Hemoglobin 29.7 pg (25-34); Mean Corpuscular Hgb Conc 33.5 g/dL (32-36); Mean Corpuscular Volume 88.7 fL (80-100); Mean Platelet Volume 9.5 fL (7.4-10.4); Monocytes # (auto) 0.33 K/uL (0.11-0.59); Monocytes % (auto) 6.6 %; Neutrophils # (auto) 2.46 K/uL (1.4-6.5); Neutrophils % (auto) 49.2 %; Platelet Count 311 K/uL (130-400); RDW Coefficient of Variation 13.6 % (11.5-14.5); Red Blood Count 4.24 M/uL (4.7-6.1)
[2019-09-24 11:04] LABS: Partial Thromboplastin Time 28.2 Seconds (21.0-31.0); Prothrombin Time 10.4 Seconds (9.0-12.0)
[2019-09-24 11:12] LABS: Est GFR (African American) 123.8; Est GFR (Non-African American) 106.8; Potassium 3.5 mmol/L (3.5-5.1)
[2019-09-24 11:13] LABS: Albumin Level 3.4 gm/dl (3.4-5.0); BUN Creatinine Ratio 14.4 (10-20); Calcium 8.4 mg/dl (8.5-10.1); Creatinine Clr Calc Pharmacy 175.6 ml/min
--- NOTE | 2019-09-24 11:18 | XRay Report ---
XR chest 1V portable HISTORY: Atypical chest pain COMPARISON: Chest 05/28/2017. FINDINGS: The lungs are clear. Cardiac silhouette is normal in size. No pleural effusions. No pneumot horax. IMPRESSION: No acute process. ACT 112: Negative or not required by law. Electronically signed by: Vicente Julien M.D. 09/24/2019 11:17 AM
[2019-09-24 11:30] LABS: Albumin Globulin Ratio 0.8 (0.9-2); Bilirubin,Total 0.5 mg/dl (0.2-1); Globulin 4.2 gm/dl (2.5-4.0); Thyroid Stimulating Hormone 2.03 uIu/ml (0.300-4.500); Total Protein 7.6 gm/dl (6.4-8.2); Troponin I 0.061 ng/ml (0-0.045)
--- NOTE | 2019-09-24 12:04 | History & Physical Report ---
Date of Service September 24, 2019 Assessment & Plan (1) Chest pain: Admit to PCU on telemetry for observation Vital signs every 4 hours Monitor electrolytes and replenish TTE pending consult cardiology Troponin x3 with EKG DVT prophylaxis Lovenox 40 mg subcu daily (2) Elevated troponin: Troponin is minimally elevated Trend down troponin x3 with EKG Continue home medicine and controlling blood pressure. Consult cardiology TTE pending Replenish potassium Present on Admission?: Yes (3) Hyperlipidemia: Lipid panel pending. Continue atorvastatin 40 mg nightly. Present on Admission?: Yes (4) Depression: Stable ,continue home medicine best atropine 2 mg p.o. nightly, sertraline 200 mg p.o. nightly, trazodone 200 mg p.o. nightly. Continue aripiprazole 10 mg p.o. nightly. Present on Admission?: Yes (5) Diabetes mellitus: Last A1c 8.4, poorly controlled, start sliding scale insulin Accu-Cheks before meals and at bedtime. Diabetic control per pharmacy. Diabetic diet. Present on Admission?: Yes (6) Hypertension: Poorly controlled blood pressure. Elevated in the ER diastolic above 100 and systolic above 190. Patient states he did not take his blood pressure medicine last night. Continue for now amlodipine 5 mg p.o. nightly, atenolol 50 mg p.o. nightly, lisinopril 40 mg p.o. nightly. Would titrate up amlodipine if blood pressure continues to be high. Started hydralazine 10 mg p.o. 4 times daily as needed for elevated blood pressure systolic over 160 and diastolic over 100. Present on Admission?: Yes History of Present Illness Chief Complaint: Chest pain Primary Care Provider: [facility] Patient is a 44 years old male from [facility] with past medical history of hypertension, hyperlipidemia,____, who was brought to the emergency room complaining of chest pain which lasted over 30 minutes and radiated to his jaw and left extremity and started from the rest. Patient reports that pain res olved after he received nitroglycerin and aspirin. Patient had nuclear stress test June 20, 2019 was not significant for any abnormality. Patient denies fever, chills, headache, abdominal pain frequency or urgency. Labs are reviewed: Sodium 138, potassium 3.5, chloride 104, carbon dioxide 32, anion gap 2, GFR 123.8, hemoglobin A1c 8.4, magnesium 2, AST 15, ALT 33, alkaline phosphatase 124, troponin 0.0 61, total protein 7.6, albumin 3.4, globulin 4.2, lipase 174, TSH 2.03, WBCs 5, hemoglobin 12.6, hematocrit 37.6, platelets 311. PT 10.4, INR 1, APTT 28.2. EKG shows normal sinus rhythm with left ventricular hypertrophy and left axis deviation with ventricular rate of 68 bpm and QT interval of 444. There are some nonspecific T wave abnormalities in the lateral leads V4, V5 and V6. Chest x-rays are without acute process. There is no pleural effusion, no pneumothorax, cardiac silhouette is normal size. Lungs are clear. Decision was made to admit patient to PCU on telemetry for chest pain and elevated first troponin and to rule out acute coronary syndrome. Allergies Allergy/AdvReac Type Severity Reaction Status Date / Time No Known Allergies Allergy Unverified 09/24/19 11:15 Home Medications Home Medications Medication Instructions Recorded Confirmed Type amlodipine 5 mg PO HS 09/24/19 09/24/19 History aripiprazole 10 mg PO HS 09/24/19 09/24/19 History aspirin [Aspirin Childrens] 81 mg PO HS 09/24/19 09/24/19 History atenolol 50 mg PO HS 09/24/19 09/24/19 History atorvastatin 40 mg PO HS 09/24/19 09/24/19 History benztropine 2 mg PO HS 09/24/19 09/24/19 History lisinopril 40 mg PO HS 09/24/19 09/24/19 History sertraline [Zoloft] 200 mg PO HS 09/24/19 09/24/19 History trazodone 200 mg PO HS 09/24/19 09/24/19 History Past Med/Surg History Medical History Diabetes mellitus Hypertension (Acute) Surgical History No pertinent past surgical history Social History Preferred Language: Welsh Communication Ability: Effective Beliefs That Will Affect Care: Pentecostalism Pentecostalism Beliefs: Spiritism Current Living Situation: Other Current Living Situation Comment: [facility] Other Information That Helps Us Care for You: No Feels Safe at Home: Yes Smoking Status: Former smoker Hx Alcohol Use: No Hx Substance Use: No Review of Systems Review of Systems: All systems reviewed & are unremarkable except as noted in HPI & below Physical Exam Constitutional: WD/WN, vitals as above well developed Eyes: PERRL, conjunctivae normal, anicteric sclerae ENMT: external ear and nose normal, oropharynx normal Neck: trachea midline, no thyromegaly Respiratory: normal respiratory effort, lungs clear to auscultation Cardiovascular: RRR, no murmur, no edema Gastrointestinal (Abdomen): normal bowel sounds, soft, nontender, no hepatosplenomegaly Musculoskeletal: no cyanosis or clubbing, extremities motor strength 5/5 Skin: no rashes, warm and dry Neurologic: patellar DTR's 2+ bilat, sensation intact Psychiatric: A+Ox3, euthymic affect Genitourinary: no testicular masses, no penis abnormality Lymphatic: no cervical or axillary lymphadenopathy Results & Data Vital Signs (Past 12 Hours) Vital Signs Temp Pulse Pulse Resp BP BP Pulse Ox 09/24/19 10:30 63 17 166/109 H 98 09/24/19 10:10 98 09/24/19 09:38 36.6 C 70 18 162/106 H 98 Code Status & VTE Plan Code Status Full code VTE Prophylaxis Plan VTE Prophylaxis will be ordered: Yes PG Care Time/CCT Total # of Minutes Spent Total Time Spent with Patient: Total time spent is greater than 50% in coordination of care (as documented) at patient's floor/unit and/or counseling patient: (1) Hypertension Hypertension type: unspecified Qualified Code(s): I10 - Essential (primary) hypertension
[2019-09-24] MEDS ORDERED: GLUCAGON FOR INJ 1 MG VIAL SQ PRN (13:11)
[2019-09-24] MEDS ORDERED: ACETAMINOPHEN 325 MG TAB PO PRN (13:11)
[2019-09-24] MEDS ORDERED: GLUCOSE 10 TABS/TUBE PO PRN (13:11)
[2019-09-24] MEDS ORDERED: DEXTROSE 50% 50 ML SYRINGE IV PRN (13:11)
[2019-09-24] MEDS ORDERED: MoRPHine SULFATE 2 MG/ML CARP IV PRN (13:11)
[2019-09-24] MEDS ORDERED: CARBOHYDRATES FOR HYPOGLYCEMIA PO PRN (13:11)
[2019-09-24] MEDS ORDERED: NITROGLYCERIN SL 0.4 MG/TAB TAB SL PRN (13:11)
[2019-09-24] MEDS ORDERED: MAGNESIUM HYDROXIDE SUSP 30 ML UDC PO PRN (13:11)
[2019-09-24] MEDS ORDERED: POLYETHYLENE (MIRALAX) 17 GM PACK PO PRN (13:11)
[2019-09-24] MEDS ORDERED: HydrALAZINE 10 MG TAB PO PRN (13:11)
[2019-09-24] MEDS ORDERED: ONDANSETRON INJ 2 MG/ML 2 ML VIAL IV PRN (13:11)
[2019-09-24] MEDS ORDERED: ALUMINUM/MAGNESIUM SUSP 30 ML UDC PO PRN (13:11)
[2019-09-24] MEDS ORDERED: GLUCOSE 40% GEL 15 GM TUBE PO PRN (13:11)
[2019-09-24] MEDS ORDERED: PHARMACY GLYCEMIC MGMT CONSULT PRN (13:20)
[2019-09-24] MEDS ORDERED: NSS + 20MEQ KCL 20 MEQ/1,000 ML BAG IV SCH (13:30)
[2019-09-24] MEDS ORDERED: ENOXAPARIN INJ 40 MG/0.4 ML SYR SQ SCH (14:00)
--- NOTE | 2019-09-24 14:02 | Pharmacy Report ---
Glycemic Control Consultation - Date of Service September 24, 2019 - Scope Scope: Glycemic Pharmacist consulted by Dr. Bravo on 09/24/2019 for glycemic control and to write orders per [facility] inpatient glycemic control protocol - Objective Weight: 141.1 kg Accuchecks BSG (last 24hrs): 09/24/19 09/24/19 10:30 13:15 Glucose 113 H POC Glucose 131 H Laboratory Data (last 24hrs): 09/24/19 10:30 Potassium 3.5 Carbon Dioxide 32 Anion Gap 2.0 L Creatinine 0.82 Est Cr Clr Drug Dosing 175.6 - Recent Pertinent Medications Outpatient Anti-diabetic Regimen: * None per records * A1c = 5.4% (05/29/2017) The patient is currently receiving: * No anti-diabetic medications ordered at this time Risk Factors for Insulin Resistance: * Diet: * T2DM - Assessment & Plan Assessment & Plan: ASSESSMENT: * 44 yo M admitted from [facility] on 09/24/2019 secondary to chest pain * Last A1c per our records was 5.4% from 2017 (8.4% per H&P??) * Repeat A1c ordered for tomorrow morning * Per records, patient does not appear to be on any anti-diabetic agents as an outpatient * Patient does take Aripiprazole which has a slight risk of increasing blood sugars * Admission BSG 131 mg/dL PLAN FOR INPATIENT GLYCEMIC CONTROL: * Basal Insulin * Will not start patient on basal insulin at this time * Bolus insulin * NovoLog per scale ACHS or Q6hrs while NPO * Goal Range: Low 110 mg/dL - High 140 mg/dL * Correction Factor: 30 mg/dL/unit * Nutritional / Prandial insulin per carb ratio of 1 unit per 10 grams CHO consumed RECOMMENDATIONS FOR DISCHARGE: * To be determined based on updated A1c tomorrow * Please note that the plan above was derived based on current level of insulin resistance and hospital stress. These recommendations are appropriate for inpatient admission only. Plan of care upon discharge will need to be reassessed to avoid potential outpatient hypo/hyperglycemia. Thank you.
[2019-09-24 14:39] LABS: Troponin I 0.052 ng/ml (0-0.045)
[2019-09-24] MEDS: NITROGLYCERIN 2% OINTMENT 30GM TUBE EXT SCH ×2 (15:17→18:22)
[2019-09-24] MEDS ORDERED: AMLODIPINE BESYLATE 5 MG TAB PO ONE (16:05)
--- NOTE | 2019-09-24 16:10 | Cardiology Consultation ---
Date of Consultation September 24, 2019 Assessment & Plan (1) Angina at rest: (2) Chest pain: (3) Elevated troponin: (4) Hyperlipidemia: (5) Hypertension: ASSESSMENT/PLAN: 1. Angina/Chest pain: Symptoms are concerning for angina in the fact that troponin was slightly elevated and he has multiple risk factors for coronary artery disease. Given the symptoms were at rest with small troponin rise, will start heparin drip. Blood pressure control very important as this can also cause chest pain and elevated troponins. Continue aspirin 81 mg daily. Will give another dose of amlodipine in addition to his dose tonight. Continue lisinopril 40 and atenolol 50 mg. He appears to be reasonably well beta blocked. Continue high-intensity statin therapy. He had a recent unremarkable myocardial perfusion study just a few months ago. Recommend cardiac catheterization. Risk and benefits were discussed with him. He was agreeable to undergo diagnostic coronary angiography and PCI, if deemed appropriate at this facility. He was made aware that CT surgery is not available here. He had a large lunch, so therefore this will be done tomorrow morning as there is no urgency given that he is currently asymptomatic. 2. Elevated troponin: Plan as above. Symptoms concerning for angina. 3. Hypertension/Hypertensive Emergency: Poorly controlled. This could also cause chest discomfort and elevated troponin. Given other dose of amlodipine now. P.r.n. hydralazine is ordered by primary service. Further adjust medications as appropriate to optimize blood pressure control. 4. Dyslipidemia: Agree with high-intensity statin therapy. 5. Disposition: Cardiology will continue to follow. Patient care communicated with Dr. Bravo of the primary hospitalist service. Highly complex medical issues. Thank you for allowing me to participate in the care of your patient. Please c all for any other questions or concerns. Sincerely, Rikki Nieto M.D. History of Present Illness Reason for Consultation: Chest pain and elevated troponin Requesting Physician: Dr. Bravo Attending Physician: Lilly Bravo MD History of Present Illness Mr. Ferris is a very pleasant 44-year-old gentleman with a history significant for type 2 diabetes, hypertension, dyslipidemia, bipolar disorder, and schizophrenia. He currently resides at [facility] and at approximately 6:00 a.m., he was awakened with substernal chest tightness that radiated to his left shoulder. He was accompanied by diaphoresis. There was no shortness of breath. Symptoms persisted for a total of 30-45 minutes and resolved after taking nitroglycerin x1 at the [facility]. He was also given aspirin 324 mg. He states that he was given his atenolol and lisinopril. He has not had any further chest discomfort. He typically walks 1.5-2 miles per day, 4 days per week and has not noted any recent chest pain or shortness of breath with this activity. He admits that he lost 40 lb in the recent past but then gained 60 lb afterwards after stopping more strenuous exercise such as playing basketball. With his initial weight loss, he was weaned off of his type 2 diabetic medication, but he cannot recall the name of the medication. He is currently not taking anything for diabetes and his hemoglobin A1c is elevated at 8.4 according to records. He noted a few drops of hematuria for 2 days, recently but it has since resolved. He did not have any significant amounts of bleeding. This is being evaluated as an outpatient. He denies melena or hematochezia or any other significant bleeding. He denies any recent fevers, chills, abdominal pain, nausea, vomiting, diarrhea, syncope, near-syncope, palpitations, orthopnea. Review of systems: As above. Review of systems otherwise negative/unremarkable. Family history: Mother at the age of 31 with some form of heart disorder but he does not recall further details. His daughter had coarctation status post surgery x2. Social history: He quit smoking in March of 2019 after smoking approximately 0.5 packs per day for 10 years. No alcohol. Smoked marijuana in the past. He is . His lives in [facility]. He has 9 children, but not all with his . He is incarcerated at [facility]. Allergies Allergy/AdvReac Type Severity Reaction Status Date / Time No Known Allergies Allergy Unverified 09/24/19 11:15 Home Medications Home Medications Medication Instructions Recorded Confirmed Type amlodipine 5 mg PO HS 09/24/19 09/24/19 History aripiprazole 10 mg PO HS 09/24/19 09/24/19 History aspirin [Aspirin Childrens] 81 mg PO HS 09/24/19 09/24/19 History atenolol 50 mg PO HS 09/24/19 09/24/19 History atorvastatin 40 mg PO HS 09/24/19 09/24/19 History benztropine 2 mg PO HS 09/24/19 09/24/19 History lisinopril 40 mg PO HS 09/24/19 09/24/19 History sertraline [Zoloft] 200 mg PO HS 09/24/19 09/24/19 History trazodone 200 mg PO HS 09/24/19 09/24/19 History Patient History Medical History (Updated 09/24/19 @ 18:59 by Aniceto Nieto MD) Bipolar disorder Hypertension (Acute) Schizophrenia Type 2 diabetes mellitus Surgical History No pertinent past surgical history Social History Preferred Language: Syriac Communication Ability: Effective Beliefs That Will Affect Care: Sabianism Sabianism Beliefs: Presybeterian Current Living Situation: Other Current Living Situation Comment: [facility] Other Information That Helps Us Care for You: No Feels Safe at Home: Yes Smoking Status: Former smoker Hx Alcohol Use: No Hx Substance Use: No Physical Exam Physical Exam: Gen.: No acute distress. Alert and oriented. HEENT: Anicteric sclera. Neck: No JVD. No bruits. Normal carotid upstrokes bilaterally. Cardiac: PMI was nonpalpable. No ventricular heave. Regular rate and rhythm. Normal S1-S2. No murmurs, rubs, or gallops. Pulmonary: Clear to auscultation bilaterally without wheezes, rales, or rhonchi. Abdomen: Soft, nontender, nondistended, with normoactive bowel sounds. No bruits noted. Extremities: 2+ radial pulses bilaterally. 2+ posterior tibialis pulses bilaterally. No edema or cyanosis. No palpable cords. Psychiatric: Affect appears appropriate. Chest: Nontender to palpation. Results & Data Vital Signs (Past 12 Hours) Vital Signs Temp Pulse Pulse Pulse Resp BP BP 09/24/19 15:14 36.8 C 67 18 171/107 H 09/24/19 13:16 36.4 C L 65 16 191/123 H 09/24/19 12:30 69 15 178/112 H 09/24/19 12:00 67 17 179/110 H 09/24/19 11:30 63 16 187/114 H 09/24/19 11:00 64 13 191/119 H 09/24/19 10:30 65 63 18 166/109 H 09/24/19 10:18 63 14 166/107 H 09/24/19 10:10 09/24/19 09:38 36.6 C 72 13 162/106 H BP Pulse Ox 09/24/19 15:14 99 09/24/19 13:16 192/123 H 99 09/24/19 12:30 97 09/24/19 12:00 98 09/24/19 11:30 98 09/24/19 11:00 97 09/24/19 10:30 166/109 H 100 09/24/19 10:18 98 09/24/19 10:10 98 09/24/19 09:38 99 Laboratory Results Laboratory Results - last 24 hr 09/24/19 09/24/19 09/24/19 10:30 10:30 10:30 WBC 5.00 RBC 4.24 L Hgb 12.6 L Hct 37.6 L MCV 88.7 MCH 29.7 MCHC 33.5 RDW Std Deviation 44.0 RDW Coeff of Kiersten 13.6 Plt Count 311 MPV 9.5 Immature Gran % (Auto) 0.0 Neut % (Auto) 49.2 Lymph % (Auto) 40.6 Dodge % (Auto) 6.6 Eos % (Auto) 3.4 Baso % (Auto) 0.2 Immature Gran # (Auto) 0.00 Neut # (Auto) 2.46 Lymph # (Auto) 2.03 Dodge # (Auto) 0.33 Eos # (Auto) 0.17 Baso # (Auto) 0.01 PT 10.4 INR 1.0 APTT 28.2 PTT Ratio 1.0 Sodium 138 Potassium 3.5 Chloride 104 Carbon Dioxide 32 Anion Gap 2.0 L BUN 12 Creatinine 0.82 Est Cr Clr Drug Dosing 175.6 Est GFR ( Amer) 123.8 Est GFR (Non-Af Amer) 106.8 BUN/Creatinine Ratio 14.4 Glucose 113 H POC Glucose Calcium 8.4 L Magnesium 2.0 Total Bilirubin 0.5 AST 15 ALT 33 Alkaline Phosphatase 124 H Troponin I 0.061 H* NT-Pro-B Natriuret Pep Total Protein 7.6 Albumin 3.4 Globulin 4.2 H Albumin/Globulin Ratio 0.8 L Lipase 174 TSH 2.030 09/24/19 09/24/19 09/24/19 13:15 13:49 16:03 WBC RBC Hgb Hct MCV MCH MCHC RDW Std Deviation RDW Coeff of Kiersten Plt Count MPV Immature Gran % (Auto) Neut % (Auto) Lymph % (Auto) Dodge % (Auto) Eos % (Auto) Baso % (Auto) Immature Gran # (Auto) Neut # (Auto) Lymph # (Auto) Dodge # (Auto) Eos # (Auto) Baso # (Auto) PT INR APTT PTT Ratio Sodium Potassium Chloride Carbon Dioxide Anion Gap BUN Creatinine Est Cr Clr Drug Dosing Est GFR ( Amer) Est GFR (Non-Af Amer) BUN/Creatinine Ratio Glucose POC Glucose 131 H 107 H Calcium Magnesium 2.0 Total Bilirubin AST ALT Alkaline Phosphatase Troponin I 0.052 H* NT-Pro-B Natriuret Pep 26 Total Protein Albumin Globulin Albumin/Globulin Ratio Lipase TSH Diagnostic Findings Telemetry personally reviewed: Sinus rhythm. ECG personally reviewed: ECG 09/24/2019 at 1:48 p.m.: Sinus rhythm [address]/T-wave abnormality. ECG 09/24/2019 at 9:30 a.m.: Sinus rhythm 68 bpm. Chest x-ray 09/24/2019: No acute process per Radiology. A personal evaluation, no obvious infiltrate. Nuclear stress 06/13/2019: Negative for ischemia. EF 58%. Echo 09/24/2019: Preliminary review at the bedside demonstrated normal LV systolic function. No significant valvular stenosis or regurgitation. Formal review to follow. Medications Administered Current Inpatient Medications Acetaminophen (Tylenol) 650 mg PO Q4H PRN PRN Reason: Pain or Fever Stop: 10/24/19 13:10 Al Hydrox/Mg Hydrox/Simethicone (Maalox) 15 ml PO Q4H PRN PRN Reason: Dyspepsia Stop: 10/24/19 13:10 Amlodipine Besylate (Norvasc) 5 mg PO HS [facility] Stop: 10/24/19 20:59 Aripiprazole (Abilify) 10 mg PO HS [facility] Stop: 10/24/19 20:59 Aspirin (Ecotrin Ectab) 81 mg PO HS [facility] Stop: 10/24/19 20:59 Atenolol (Tenormin) 50 mg PO HS [facility] Stop: 10/24/19 20:59 Atorvastatin Calcium (Lipitor) 40 mg PO HS [facility] Stop: 10/24/19 20:59 Benztropine Mesylate (Cogentin) 2 mg PO HS [facility] Stop: 10/24/19 20:59 Dextrose (Dextrose 50%) 25 - 50 ml IV UD PRN; Protocol PRN Reason: Hypoglycemia Protocol Stop: 10/24/19 13:10 Glucagon (Glucagen) 1 mg SQ UD PRN; Protocol PRN Reason: Hypoglycemia Protocol Stop: 10/24/19 13:10 Glucose (Dex4 Glucose) 4 - 8 tabs PO UD PRN; Protocol PRN Reason: Hypoglycemia Protocol Stop: 10/24/19 13:10 Glucose (Glucose 40%) 15 - 30 gm PO UD PRN; Protocol PRN Reason: Hypoglycemia Protocol Stop: 10/24/19 13:10 Heparin Sodium/Dextrose () 1 ea IV Q30M [facility]; Protocol Stop: 09/24/19 19:00 Hydralazine HCl (Apresoline) 10 mg PO QID PRN PRN Reason: high blood perssure Stop: 10/24/19 13:10 Last Admin: 09/24/19 15:09 Dose: 10 mg Documented by: Potassium Chloride/Sodium Chloride (Normal Saline W/20 Meq Kcl) 20 meq in 1,000 mls @ 80 mls/hr IV .[id number] [facility] Stop: 09/25/19 01:59 Last Admin: 09/24/19 14:30 Dose: 80 mls/hr Documented by: Heparin Sodium/Dextrose (Heparin Sodium/Dextrose) 25,000 units in 500 mls @ 0.02 mls/hr IV .Q24H [facility]; Protocol Stop: 10/24/19 16:14 Insulin Aspart (Novolog Flexpen) 0 units SC [facility] Stop: 10/24/19 16:29 Lisinopril (Zestril) 40 mg PO HS [facility] Stop: 10/24/19 20:59 Magnesium Hydroxide (Milk Of Magnesia) 30 ml PO Q12H PRN PRN Reason: Constipation Stop: 10/24/19 13:10 Miscellaneous (Carbohydrates For Hypoglycemia) 15 - 30 gm PO UD PRN PRN Reason: Hypoglycemia Protocol Stop: 10/24/19 13:10 Miscellaneous Information (Consult Glycemic Management Pharmacy) 1 ea N/A UD PRN; Protocol PRN Reason: Consult Stop: 10/24/19 13:19 Morphine Sulfate (Morphine Sulfate) 2 mg IV Q30M PRN PRN Reason: Chest Pain Stop: 10/08/19 13:10 Nitroglycerin (Nitrostat) 0.4 mg SL UD PRN PRN Reason: Chest Pain Stop: 10/24/19 13:10 Nitroglycerin (Nitro-Bid 2%) 1 inch EXT Q6 [facility] Stop: 10/24/19 13:29 Last Admin: 09/24/19 15:17 Dose: 1 inch Documented by: Ondansetron HCl (Zofran) 4 mg IV Q6H PRN PRN Reason: Nausea Stop: 10/24/19 13:10 Polyethylene Glycol (Miralax Powder Packet) 17 gm PO DAILY PRN PRN Reason: Constipation Stop: 10/24/19 13:10 Sertraline HCl (Zoloft) 200 mg PO HS [facility] Stop: 10/24/19 20:59 Trazodone HCl (Desyrel) 200 mg PO HS [facility] Stop: 10/24/19 20:59 PG Care Time/CCT Total # of Minutes Spent Total Time Spent with Patient: Total time spent is greater than 50% in coordination of care (as documented) at patient's floor/unit and/or counseling patient: (1) Hypertension Hypertension type: unspecified Qualified Code(s): I10 - Essential (primary) hypertension
[2019-09-24] MEDS: HEPARIN SODIUM/DEXTROSE 25,000 UNITS/500 ML BAG IV SCH (18:20)
[2019-09-24] MEDS: INSULIN ASPART 100 UNITS/ML 3 ML PEN SC SCH ×2 (18:22→21:10)
[2019-09-24] MEDS ORDERED: HEPARIN IV BOLUS 5,000 UNITS in SYRINGE 0 ML IV STA (18:30)
[2019-09-24] MEDS ORDERED: AMLODIPINE BESYLATE 5 MG TAB PO SCH (21:00)
[2019-09-24] MEDS: OXYCODONE/ACETAMINOPHEN 5mg/325mg TAB PO PRN (21:02)
[2019-09-24] MEDS: ARIPiprazole 10 MG TAB PO SCH (21:03)
[2019-09-24] MEDS: ATORVASTATIN 40 MG TAB PO SCH (21:03)
[2019-09-24] MEDS: BENZTROPINE MESYLATE 1 MG TAB PO SCH (21:04)
[2019-09-24] MEDS: lisinopriL 40 MG TAB PO SCH (21:04)
[2019-09-24] MEDS: ASPIRIN 81 MG ECTAB PO SCH (21:04)
[2019-09-24] MEDS: ATENOLOL 50 MG TABLET PO SCH (21:05)
[2019-09-24] MEDS: TRAZODONE HCL 100 MG TAB PO SCH (21:05)
[2019-09-24] MEDS: SERTRALINE HCL 100 MG TABLET PO SCH (21:05)
[2019-09-25] MEDS: NITROGLYCERIN 2% OINTMENT 30GM TUBE EXT SCH ×3 (00:16→19:35)
[2019-09-25 01:38] LABS: Partial Thromboplastin Ratio 4.2
[2019-09-25 01:44] LABS: Partial Thromboplastin Time 115.1 Seconds (21.0-31.0)
[2019-09-25 05:46] LABS: Basophils # (auto) 0.02 K/uL (0-0.2); Basophils % (auto) 0.3 %; Eosinophils # (auto) 0.19 K/uL (0-0.5); Eosinophils % (auto) 3.2 %; Hematocrit (blood only) 33.6 % (42-52); Hemoglobin 11.9 g/dL (14.0-18.0); Immature Granulocytes # (auto) 0.01 K/uL (0.00-0.02); Immature Granulocytes % (auto) 0.2 %; Lymphocytes # (auto) 2.82 K/uL (1.2-3.4); Mean Corpuscular Hemoglobin 31.2 pg (25-34); Mean Corpuscular Hgb Conc 35.4 g/dL (32-36); Mean Corpuscular Volume 88.2 fL (80-100); Mean Platelet Volume 9.9 fL (7.4-10.4); Monocytes # (auto) 0.33 K/uL (0.11-0.59); Monocytes % (auto) 5.5 %; Neutrophils # (auto) 2.63 K/uL (1.4-6.5); Neutrophils % (auto) 43.8 %; Platelet Count 299 K/uL (130-400); RDW Coefficient of Variation 13.6 % (11.5-14.5); RDW Standard Deviation 43.8 fL (36.4-46.3); Red Blood Count 3.81 M/uL (4.7-6.1)
--- NOTE | 2019-09-25 05:51 | Electrocardiogram Report ---
Test Reason : Blood Pressure : / mmHG Vent. Rate : 068 BPM Atrial Rate : 068 BPM P-R Int : 180 ms QRS Dur : 086 ms QT Int : 444 ms P-R-T Axes : 049 -33 030 degrees QTc Int : 472 ms Poor data quality, interpretation may be adversely affected Normal sinus rhythm Possible Left atrial enlargement Left axis deviation Left ventricular hypertrophy Abnormal ECG When compared with ECG of 11-NOV-2018 16:56, No significant change was found Confirmed by Aniceto Nieto ([id number]) on 09/25/2019 5:50:43 AM Referred By: ED Confirmed By:Aniceto Nieto
[2019-09-25] MEDS: OXYCODONE/ACETAMINOPHEN 5mg/325mg TAB PO PRN ×2 (05:53→14:56)
[2019-09-25] MEDS: INSULIN ASPART 100 UNITS/ML 3 ML PEN SC SCH ×5 (05:55→20:57)
--- NOTE | 2019-09-25 06:02 | Electrocardiogram Report ---
Test Reason : Blood Pressure : / mmHG Vent. Rate : 069 BPM Atrial Rate : 069 BPM P-R Int : 200 ms QRS Dur : 088 ms QT Int : 434 ms P-R-T Axes : 072 -22 028 degrees QTc Int : 465 ms Normal sinus rhythm Nonspecific ST and T wave abnormality Abnormal ECG When compared with ECG of 24-SEP-2019 09:38, ST elevation now present in Anterior leads Confirmed by Aniceto Nieto ([id number]) on 09/25/2019 6:02:31 AM Referred By: [facility] Confirmed By:Aniceto Nieto
[2019-09-25 06:09] LABS: Albumin Globulin Ratio 0.8 (0.9-2); Albumin Level 3.1 gm/dl (3.4-5.0); BUN Creatinine Ratio 18.4 (10-20); Bilirubin,Total 0.4 mg/dl (0.2-1); Calcium 8.2 mg/dl (8.5-10.1); Est GFR (African American) 122.6; Est GFR (Non-African American) 105.7; Globulin 3.8 gm/dl (2.5-4.0); Potassium 2.9 mmol/L (3.5-5.1); Total Protein 6.9 gm/dl (6.4-8.2)
[2019-09-25 06:31] LABS: Estimated Average Glucose 151 mg/dl; Hemoglobin A1C 6.9 % (4.5-5.6)
[2019-09-25] MEDS ORDERED: POTASSIUM CHLORIDE 20 MEQ TABCR PO ONE ×2 (08:45→16:00)
[2019-09-25] MEDS: POTASSIUM CHLORIDE / WTR 10 MEQ/100 ML PLCT IV SCH ×2 (08:49→14:14)
[2019-09-25] MEDS: HEPARIN SODIUM/DEXTROSE 25,000 UNITS/500 ML BAG IV SCH (08:55)
--- NOTE | 2019-09-25 08:56 | Cardiology Progress Note ---
Date of Service September 25, 2019 Assessment & Plan (1) Angina at rest: (2) Chest pain: (3) Elevated troponin: (4) Hyperlipidemia: (5) Hypertension: ASSESSMENT/PLAN: 1. Angina/Chest pain: Symptoms were concerning for angina but no significant CAD. Likely related to LVH and uncontrolled hypertension/hypertensive emergency. Recommend optimization of blood pressure. Amlodipine has been adjusted to 10 mg daily. Blood pressure improved today but was elevated during cardiac catheterization. If further blood pressure management is needed, would consider diuretic such as HCTZ. Continue MANDA-inhibitor. Could also consider titrating atenolol to 75 mg daily with close watch of heart rate. 2. Elevated troponin: Likely due to severe hypertension in the setting of LVH. No significant CAD. 3. Hypertension/Hypertensive Emergency: Blood pressure has been poorly controlled. Optimize blood pressure control as above. 4. Dyslipidemia: On statin therapy. 5. Disposition: Cardiology will continue to follow while hospitalized. Blood pressure management as noted above. Patient care communicated with primary hospitalist, Dr. Moeller. Subjective No further chest pain. He denies SOB, palpitations, edema, syncope, or bleeding. He is tolerating medications well. He was accompanied by [facility]. Review of Systems: As above. Physical Exam Physical Exam: Gen.: No acute distress. Alert and oriented. HEENT: Anicteric sclera. Neck: Thick neck. Cardiac: Regular rate and rhythm. Normal S1-S2. No murmurs, rubs, or gallops. Pulmonary: Clear to auscultation bilaterally without wheezes, rales, or rhonchi. Abdomen: Soft, nontender, nondistended, with normoactive bowel sounds. No bruits noted. Extremities: 2+ radial pulses bilaterally. No edema or cyanosis. Psychiatric: Affect appears appropriate. Results & Data Vital Signs (Past 12 Hours) Vital Signs Temp Pulse Pulse Pulse Resp BP BP 09/25/19 03:23 36.5 C 86 16 131/81 09/24/19 23:50 36.6 C 66 16 145/77 H 09/24/19 22:20 66 09/24/19 22:16 65 09/24/19 21:00 169/107 H Pulse Ox 09/25/19 03:23 95 09/24/19 23:50 95 09/24/19 22:20 09/24/19 22:16 09/24/19 21:00 Laboratory Results Laboratory Results - last 24 hr 09/24/19 09/24/19 09/24/19 13:15 13:49 16:03 WBC RBC Hgb Hct MCV MCH MCHC RDW Std Deviation RDW Coeff of Kiersten Plt Count MPV Immature Gran % (Auto) Neut % (Auto) Lymph % (Auto) [place] % (Auto) Eos % (Auto) Baso % (Auto) Immature Gran # (Auto) Neut # (Auto) Lymph # (Auto) [place] # (Auto) Eos # (Auto) Baso # (Auto) APTT PTT Ratio Activ Coag Time Kaolin Sodium Potassium Chloride Carbon Dioxide Anion Gap BUN Creatinine Est Cr Clr Drug Dosing Est GFR ( Amer) Est GFR (Non-Af Amer) BUN/Creatinine Ratio Glucose POC Glucose 131 H 107 H Estimat Average Glucose Hemoglobin A1c Calcium Magnesium 2.0 Total Bilirubin AST ALT Alkaline Phosphatase Troponin I 0.052 H* NT-Pro-B Natriuret Pep 26 Total Protein Albumin Globulin Albumin/Globulin Ratio Triglycerides Cholesterol LDL Cholesterol, Calc VLDL Cholesterol, Calc HDL Cholesterol Cholesterol/HDL Ratio 09/24/19 09/24/19 09/24/19 18:56 20:13 23:52 WBC RBC Hgb Hct MCV MCH MCHC RDW Std Deviation RDW Coeff of Kiersten Plt Count MPV Immature Gran % (Auto) Neut % (Auto) Lymph % (Auto) [place] % (Auto) Eos % (Auto) Baso % (Auto) Immature Gran # (Auto) Neut # (Auto) Lymph # (Auto) [place] # (Auto) Eos # (Auto) Baso # (Auto) APTT PTT Ratio Activ Coag Time Kaolin Sodium Potassium Chloride Carbon Dioxide Anion Gap BUN Creatinine Est Cr Clr Drug Dosing Est GFR ( Amer) Est GFR (Non-Af Amer) BUN/Creatinine Ratio Glucose POC Glucose 121 H 122 H Estimat Average Glucose Hemoglobin A1c Calcium Magnesium Total Bilirubin AST ALT Alkaline Phosphatase Troponin I 0.048 H* NT-Pro-B Natriuret Pep Total Protein Albumin Globulin Albumin/Globulin Ratio Triglycerides Cholesterol LDL Cholesterol, Calc VLDL Cholesterol, Calc HDL Cholesterol Cholesterol/HDL Ratio 09/25/19 09/25/19 09/25/19 01:06 01:06 05:09 WBC 6.00 RBC 3.81 L Hgb 11.9 L Hct 33.6 L MCV 88.2 MCH 31.2 MCHC 35.4 RDW Std Deviation 43.8 RDW Coeff of Kiersten 13.6 Plt Count 299 MPV 9.9 Immature Gran % (Auto) 0.2 Neut % (Auto) 43.8 Lymph % (Auto) 47.0 [place] % (Auto) 5.5 Eos % (Auto) 3.2 Baso % (Auto) 0.3 Immature Gran # (Auto) 0.01 Neut # (Auto) 2.63 Lymph # (Auto) 2.82 [place] # (Auto) 0.33 Eos # (Auto) 0.19 Baso # (Auto) 0.02 APTT 115.1 H* PTT Ratio 4.2 Activ Coag Time Kaolin Sodium Potassium Chloride Carbon Dioxide Anion Gap BUN Creatinine Est Cr Clr Drug Dosing Est GFR ( Amer) Est GFR (Non-Af Amer) BUN/Creatinine Ratio Glucose POC Glucose Estimat Average Glucose Hemoglobin A1c Calcium Magnesium Total Bilirubin AST ALT Alkaline Phosphatase Troponin I 0.042 NT-Pro-B Natriuret Pep Total Protein Albumin Globulin Albumin/Globulin Ratio Triglycerides Cholesterol LDL Cholesterol, Calc VLDL Cholesterol, Calc HDL Cholesterol Cholesterol/HDL Ratio 09/25/19 09/25/19 09/25/19 05:09 05:09 05:54 WBC RBC Hgb Hct MCV MCH MCHC RDW Std Deviation RDW Coeff of Kiersten Plt Count MPV Immature Gran % (Auto) Neut % (Auto) Lymph % (Auto) [place] % (Auto) Eos % (Auto) Baso % (Auto) Immature Gran # (Auto) Neut # (Auto) Lymph # (Auto) [place] # (Auto) Eos # (Auto) Baso # (Auto) APTT PTT Ratio Activ Coag Time Kaolin Sodium 139 Potassium 2.9 L D Chloride 107 Carbon Dioxide 30 Anion Gap 2.0 L BUN 15 Creatinine 0.84 Est Cr Clr Drug Dosing 169.0 Est GFR ( Amer) 122.6 Est GFR (Non-Af Amer) 105.7 BUN/Creatinine Ratio 18.4 Glucose 130 H POC Glucose 127 H Estimat Average Glucose 151 Hemoglobin A1c 6.9 H Calcium 8.2 L Magnesium Total Bilirubin 0.4 AST 17 ALT 31 Alkaline Phosphatase 112 Troponin I NT-Pro-B Natriuret Pep Total Protein 6.9 Albumin 3.1 L Globulin 3.8 Albumin/Globulin Ratio 0.8 L Triglycerides 150 Cholesterol 153 LDL Cholesterol, Calc 90 VLDL Cholesterol, Calc 30 HDL Cholesterol 33 Cholesterol/HDL Ratio 5 09/25/19 09/25/19 08:27 11:30 WBC RBC Hgb Hct MCV MCH MCHC RDW Std Deviation RDW Coeff of Kiersten Plt Count MPV Immature Gran % (Auto) Neut % (Auto) Lymph % (Auto) [place] % (Auto) Eos % (Auto) Baso % (Auto) Immature Gran # (Auto) Neut # (Auto) Lymph # (Auto) [place] # (Auto) Eos # (Auto) Baso # (Auto) APTT 86.5 H* PTT Ratio 3.2 Activ Coag Time Kaolin 147 H Sodium Potassium Chloride Carbon Dioxide Anion Gap BUN Creatinine Est Cr Clr Drug Dosing Est GFR ( Amer) Est GFR (Non-Af Amer) BUN/Creatinine Ratio Glucose POC Glucose Estimat Average Glucose Hemoglobin A1c Calcium Magnesium Total Bilirubin AST ALT Alkaline Phosphatase Troponin I NT-Pro-B Natriuret Pep Total Protein Albumin Globulin Albumin/Globulin Ratio Triglycerides Cholesterol LDL Cholesterol, Calc VLDL Cholesterol, Calc HDL Cholesterol Cholesterol/HDL Ratio Diagnostic Findings Telemetry personally reviewed: Sinus rhythm. No arrhythmia. Cardiac catheterization performed on 09/25/2019: No significant CAD. Medications Administered Current Inpatient Medications Acetaminophen (Tylenol) 650 mg PO Q4H PRN PRN Reason: Pain or Fever Stop: 10/24/19 13:10 Al Hydrox/Mg Hydrox/Simethicone (Maalox) 15 ml PO Q4H PRN PRN Reason: Dyspepsia Stop: 10/24/19 13:10 Amlodipine Besylate (Norvasc) 5 mg PO [facility] Stop: 10/24/19 20:59 Last Admin: 09/24/19 21:04 Dose: 5 mg Documented by: Aripiprazole (Abilify) 10 mg PO [facility] Stop: 10/24/19 20:59 Last Admin: 09/24/19 21:03 Dose: 10 mg Documented by: Aspirin (Ecotrin Ectab) 81 mg PO [facility] Stop: 10/24/19 20:59 Last Admin: 09/24/19 21:04 Dose: 81 mg Documented by: Atenolol (Tenormin) 50 mg PO [facility] Stop: 10/24/19 20:59 Last Admin: 09/24/19 21:05 Dose: 50 mg Documented by: Atorvastatin Calcium (Lipitor) 40 mg PO [facility] Stop: 10/24/19 20:59 Last Admin: 09/24/19 21:03 Dose: 40 mg Documented by: Benztropine Mesylate (Cogentin) 2 mg PO [facility] Stop: 10/24/19 20:59 Last Admin: 09/24/19 21:04 Dose: 2 mg Documented by: Dextrose (Dextrose 50%) 25 - 50 ml IV UD PRN; Protocol PRN Reason: Hypoglycemia Protocol Stop: 10/24/19 13:10 Glucagon (Glucagen) 1 mg SQ UD PRN; Protocol PRN Reason: Hypoglycemia Protocol Stop: 10/24/19 13:10 Glucose (Dex4 Glucose) 4 - 8 tabs PO UD PRN; Protocol PRN Reason: Hypoglycemia Protocol Stop: 10/24/19 13:10 Glucose (Glucose 40%) 15 - 30 gm PO UD PRN; Protocol PRN Reason: Hypoglycemia Protocol Stop: 10/24/19 13:10 Hydralazine HCl (Apresoline) 10 mg PO QID PRN PRN Reason: high blood perssure Stop: 10/24/19 13:10 Last Admin: 09/24/19 15:09 Dose: 10 mg Documented by: Heparin Sodium/Dextrose (Heparin Sodium/Dextrose) 25,000 units in 500 mls @ 33 mls/hr IV .[id number] [facility]; Protocol Stop: 10/24/19 16:59 Last Admin: 09/25/19 08:55 Dose: 1,650 units/hr, 33 mls/hr Documented by: Sodium Chloride (Nss 1000ml) 1,000 mls @ 100 mls/hr IV .Q10H [facility] Stop: 09/25/19 17:00 Insulin Aspart (Novolog Flexpen) 0 units SC Q6H [facility] Stop: 10/25/19 00:00 Last Admin: 09/25/19 05:55 Dose: Not Given Documented by: Lisinopril (Zestril) 40 mg PO [facility] Stop: 10/24/19 20:59 Last Admin: 09/24/19 21:04 Dose: 40 mg Documented by: Magnesium Hydroxide (Milk Of Magnesia) 30 ml PO Q12H PRN PRN Reason: Constipation Stop: 10/24/19 13:10 Miscellaneous (Carbohydrates For Hypoglycemia) 15 - 30 gm PO UD PRN PRN Reason: Hypoglycemia Protocol Stop: 10/24/19 13:10 Miscellaneous Information (Consult Glycemic Management Pharmacy) 1 ea N/A UD PRN; Protocol PRN Reason: Consult Stop: 10/24/19 13:19 Morphine Sulfate (Morphine Sulfate) 2 mg IV Q30M PRN PRN Reason: Chest Pain Stop: 10/08/19 13:10 Nitroglycerin (Nitrostat) 0.4 mg SL UD PRN PRN Reason: Chest Pain Stop: 10/24/19 13:10 Nitroglycerin (Nitro-Bid 2%) 1 inch EXT Q6 [facility] Stop: 10/24/19 13:29 Last Admin: 09/25/19 05:49 Dose: 1 inch Documented by: Ondansetron HCl (Zofran) 4 mg IV Q6H PRN PRN Reason: Nausea Stop: 10/24/19 13:10 Oxycodone/Acetaminophen (Percocet 5mg/325mg) 1 tab PO Q4H PRN PRN Reason: Pain Stop: 10/08/19 20:53 Last Admin: 09/25/19 05:53 Dose: 1 tab Documented by: Polyethylene Glycol (Miralax Powder Packet) 17 gm PO DAILY PRN PRN Reason: Constipation Stop: 10/24/19 13:10 Sertraline HCl (Zoloft) 200 mg PO HS [facility] Stop: 10/24/19 20:59 Last Admin: 09/24/19 21:05 Dose: 200 mg Documented by: Trazodone HCl (Desyrel) 200 mg PO HS [facility] Stop: 10/24/19 20:59 Last Admin: 09/24/19 21:05 Dose: 200 mg Documented by: PG Care Time/CCT Total # of Minutes Spent Total Time Spent with Patient: Total time spent is greater than 50% in coordination of care (as documented) at patient's floor/unit and/or counseling patient: (1) Hypertension Hypertension type: unspecified Qualified Code(s): I10 - Essential (primary) hypertension
[2019-09-25 08:57] LABS: Partial Thromboplastin Ratio 3.2
[2019-09-25 09:03] LABS: Partial Thromboplastin Time 86.5 Seconds (21.0-31.0)
--- NOTE | 2019-09-25 09:58 | Pre Anesthesia Assessment ---
Date of Service September 25, 2019 Pre Sedation Assessment Vital Signs Temp Pulse Pulse Pulse Resp BP BP 09/25/19 09:20 66 20 127/81 09/25/19 07:25 36.7 C 58 L 20 164/88 H 09/25/19 03:23 36.5 C 86 16 131/81 09/24/19 23:50 36.6 C 66 16 09/24/19 22:20 66 09/24/19 22:16 65 09/24/19 21:00 09/24/19 19:10 37.0 C 66 18 164/101 H 09/24/19 18:24 73 165/102 H 09/24/19 15:14 36.8 C 67 18 171/107 H 09/24/19 13:16 36.4 C L 65 16 191/123 H 09/24/19 12:30 69 15 178/112 H 09/24/19 12:00 67 17 179/110 H 09/24/19 11:30 63 16 187/114 H 09/24/19 11:00 64 13 191/119 H 09/24/19 10:30 65 63 18 166/109 H 09/24/19 10:18 63 14 166/107 H 09/24/19 10:10 BP Pulse Ox 09/25/19 09:20 95 09/25/19 07:25 97 09/25/19 03:23 95 09/24/19 23:50 145/77 H 95 09/24/19 22:20 09/24/19 22:16 09/24/19 21:00 169/107 H 09/24/19 19:10 98 09/24/19 18:24 09/24/19 15:14 99 09/24/19 13:16 192/123 H 99 09/24/19 12:30 97 09/24/19 12:00 98 09/24/19 11:30 98 09/24/19 11:00 97 09/24/19 10:30 166/109 H 100 09/24/19 10:18 98 09/24/19 10:10 98 Cardiovascular RRR, no murmur, no edema Respiratory normal respiratory effort, lungs clear to auscultation Pre-Sedation Airway Assessment Smoking Status: Former smoker Hx Sleep Apnea: No Short, Thick Neck: No Thyromental Distance: > or= 3.5 Finger Breadths Oral Cavity: + WNL Mallampati Class: III ASA: ASA3 NPO Status Date of Last Intake of Fluids: 09/24/19 Time of Last Intake of Fluids: 22:00 Date of Last Intake of Solid Food: 09/24/19 Time of Last Intake of Solid Foods: 22:00 Procedure Planning Contraindications for Sedation: none Current Medications Reviewed: Yes Notes The planned sedation has been discussed with the patient. Informed Consent was obtained. I have identified the patient, determined the appropriateness of sedation and have assessed the patient immediately prior to the procedure. All medicine(s) and interventions are by my order.
[2019-09-25] MEDS ORDERED: fentaNYL citrate 100 MCG/2 ML VIAL ONE (10:33)
[2019-09-25] MEDS ORDERED: MIDAZOLAM HCL 1 MG/ML 2ML VIAL ONE (10:33)
[2019-09-25] MEDS ORDERED: NiCARDipine HCL INJ 2.5 MG/ML 10 ML AMP ONE (10:33)
[2019-09-25] MEDS ORDERED: HEPARIN (PORCINE) 1000 UNIT/ML 10 ML (CATH LAB USE ONLY) ONE (10:33)
[2019-09-25] MEDS ORDERED: NITROGLYCERIN/D5W 100MCG/ML 20ML SYR ONE (10:34)
[2019-09-25] MEDS ORDERED: HydrALAZINE HCL 20 MG/ML VIAL ONE (11:45)
--- NOTE | 2019-09-25 12:10 | Cardiac Catheterization ---
[facility] Data: Supervisor Maintenance And Custodians Cardiac Status Clinical evaluation leading to the procedure CAD Presenation: Unstable angina Anginal Classification: CCS IV Heart Failure: No Cardiogenic Shock within 24 Hours: No Cardiac Arrest within 24 Hours: No Imaging Studies Past 6 Months: Yes Stress Studies Past 6 Months: Yes Standard Exercise Test: No Stress Echocardiogram: No Stress Testing w/SPECT MPI: Yes - Negative Cardiac CTA: No Coronary Anatomy Dominant: Co-Dominant Left Ventricular Angiography EF (%): n/a Diagnostic Physicians Name: Aniceto Nieto MD Status: Elective Closure Device Percutaneous Entry Location: Radial Closure Device: Radial Band Recommendations: Medical Therapy and/or Counseling Cardiac Cath Procedure Full Procedure Date September 25, 2019 Pre-Procedure Diagnosis Pre-Procedure Diagnosis: Angina AUC Score AUC Score: 7 Post-Procedure Diagnosis Post-Procedure Diagnosis: Normal Coronary Arteries and Elevated Intracardiac Pressures Procedure(s) Performed Procedure(s) Performed: Coronary Angiography and Left Heart Cath Nursing Staff Development Coordinator Aniceto Nieto MD Vp Software Support(s) Dedester Estimated Blood Loss Estimated Blood Loss: < 25 ml Medication(s) Medication(s): Fentanyl, Heparin, Hydralazine, Lidocaine 1%, Nicardipine and Versed Summary of Findings Procedures: 1. Coronary angiography 2. Left heart catheterization 3. Moderate sedation Coronary angiography: 1. Left main coronary: LMCA is a large caliber vessel without significant CAD. 2. Left anterior descending: LAD is large caliber vessel that extends to the apex. It gives rise to a medium caliber D1, medium caliber D2, and a large caliber D3. No significant CAD within the LAD system. 3. Circumflex: The circumflex is a large caliber vessel. Codominant system. Circumflex gives rise to a very large caliber branching OM1. Small PDA. No significant CAD within the circumflex system. 4. Right coronary artery: The RCA is large and codominant. No significant CAD noted within the RCA, PL branch, and PDA. Left heart catheterization: 1. Left ventriculography was not performed. 2. Mildly elevated LVEDP; 17mmHg. 3. No aortic stenosis. Peak to peak gradient across aortic valve was 0. Moderate sedation: 1. Sedation start time: 11:24 a.m. 2. Sedation end time: 11:57 a.m. Impression: 1. No significant CAD. 2. Mildly elevated LVEDP. 3. No significant aortic stenosis. 4. Hypertension Plan: 1. Risk factor modification. 2. Optimize blood pressure control. Hemodynamics Rest Ao:: 165/110 Final Ao: 156/91 LV: 147/4/17 Recommendations Recommendations: Medical Therapy and/or Counseling Specimens Specimens: None Radiation Exposure (mGy) 1298 mGy. Fluoro time 4.7 min. Contrast (mls) 55 ml Procedural Complication(s) None Disposition Supervisor Maintenance And Custodians Holding/Recovery I attest to the content of the Intraoperative Record and any orders documented therein. Any exceptions are noted below. [facility] Card Cath Procedure Codes Cardiac Catheterization Procedure 1: Cardiovascular Cath Procedures: 11828 Coronaries and LHC (+/-LV) Moderate Sedation Procedure 1: Sedation/Anesthesia: 53159 Mod Sedation by the same physician;Init15 Min Child Age 5 & Up Procedure 2: Sedation/Anesthesia: 29162 Mod Sedation by the same physician; Ea [id number] Minutes PG Care Time/CCT Total # of Minutes Spent Total Time Spent with Patient: Total time spent is greater than 50% in coordination of care (as documented) at patient's floor/unit and/or counseling patient:
[2019-09-25] MEDS ORDERED: SODIUM CHLORIDE 0.9% 1000ML 1,000 ML IV SCH (12:20)
[2019-09-25 14:43] LABS: BUN Creatinine Ratio 14.7 (10-20); Calcium 8.6 mg/dl (8.5-10.1); Creatinine Clr Calc Pharmacy 147.9 ml/min; Est GFR (African American) 110.2; Est GFR (Non-African American) 95.1; Potassium 3.2 mmol/L (3.5-5.1)
[2019-09-25] MEDS: CHLORTHALIDONE 25 MG TAB PO SCH (16:23)
[2019-09-25] MEDS: lisinopriL 40 MG TAB PO SCH (20:51)
[2019-09-25] MEDS: ASPIRIN 81 MG ECTAB PO SCH (20:52)
[2019-09-25] MEDS: ATENOLOL 50 MG TABLET PO SCH (20:52)
[2019-09-25] MEDS: ATORVASTATIN 40 MG TAB PO SCH (20:52)
[2019-09-25] MEDS: BENZTROPINE MESYLATE 1 MG TAB PO SCH (20:52)
[2019-09-25] MEDS: ARIPiprazole 10 MG TAB PO SCH (20:52)
[2019-09-25] MEDS: TRAZODONE HCL 100 MG TAB PO SCH (20:53)
[2019-09-25] MEDS: SERTRALINE HCL 100 MG TABLET PO SCH (20:53)
[2019-09-25] MEDS ORDERED: HydrALAZINE 10 MG TAB PO PRN (20:57)
[2019-09-25] MEDS ORDERED: AMLODIPINE BESYLATE 5 MG TAB PO SCH (21:00)
[2019-09-25] MEDS ORDERED: LANTUS PER UNIT CHARGE SQ SCH (21:00)
--- NOTE | 2019-09-25 21:09 | Hospitalist Progress Note ---
Date of Service September 25, 2019 Assessment & Plan (1) Hypertensive emergency: Chest pain, headache and elevated troponins in setting of severe hypertension due to missed medication and possible diarrheal illness. Usually on amlodipine 5mg, atenolol 50mg, lisinopril 40mg. Amlodipine increased to 10mg in addition to adding chlorthalidone today (as nitro patch subsequently removed) (2) Chest pain: Resolved. Appreciate cardiology management with cardiac cath - no significant coronary artery disease. (3) Elevated troponin: Demand-ischemia in setting of hypertensive emergency. (4) Hyperlipidemia: LDL 90 Continue atorvastatin 40 mg nightly. (5) Depression: Stable. Continue home meds benztropine 2 mg p.o. nightly, sertraline 200 mg p.o. nightly, trazodone 200 mg p.o. nightly, aripiprazole 10 mg p.o. nightly. (6) Diabetes mellitus: HbA1C 6.9. On no home meds list. Basal/bolus insulin as managed by pharmacy while admitted. Consider starting metformin as outpatient after diarrhea resolves. (7) Diarrhea: Possible viral gastroenteritis. Continue to monitor. Suspect this was why his potassium was so low this morning. (8) Headache: Now down to 4/10 after diarrhea episode. Suspect just due to hypertensive emergency as above +/- nitro patch given. If severe overnight low tolerance for CT head for SAH as patient was on both Lovenox and heparin yesterday. (9) DVT prophylaxis: Stopped heparin drip. In setting of getting both lovenox and heparin yesterday, ongoing headache and anticipated discharge tomorrow will defer further chemical anticoagulation for now. Results & Data Vital Signs (Past 12 Hours) Vital Signs Temp Pulse Resp BP Pulse Ox 09/25/19 20:40 37 C 09/25/19 19:34 75 18 160/90 H 97 09/25/19 14:29 71 155/93 H 95 09/25/19 13:34 65 148/96 H 95 09/25/19 13:19 65 146/94 H 96 09/25/19 13:04 58 L 137/93 96 09/25/19 12:49 70 16 124/85 99 09/25/19 12:25 65 20 135/85 96 09/25/19 12:20 65 20 145/93 H 96 09/25/19 12:15 65 20 146/93 H 96 09/25/19 12:10 65 20 150/90 H 97 09/25/19 09:20 66 20 127/81 95 PG Care Time/CCT Total # of Minutes Spent Total Time Spent with Patient: Total time spent is greater than 50% in coordination of care (as documented) at patient's floor/unit and/or counseling patient: (1) Chest pain Chest pain type: unspecified Qualified Code(s): R07.9 - Chest pain, unspecified (2) Hyperlipidemia Hyperlipidemia type: mixed hyperlipidemia Qualified Code(s): E78.2 - Mixed hyperlipidemia (3) Depression Depression Type: unspecified Qualified Code(s): F32.9 - Major depressive disorder, single episode, unspecified (4) Diabetes mellitus Diabetes mellitus type: type 2 Diabetes mellitus mcc insulin use: without mcc use Diabetes mellitus complication status: without complication Qualified Code(s): E11.9 - Type 2 diabetes mellitus without complications (5) Diarrhea Diarrhea type: presumed infectious Qualified Code(s): R19.7 - Diarrhea, unspecified
--- NOTE | 2019-09-25 23:09 | Electrocardiogram Report ---
Test Reason : Blood Pressure : / mmHG Vent. Rate : 067 BPM Atrial Rate : 067 BPM P-R Int : 192 ms QRS Dur : 092 ms QT Int : 428 ms P-R-T Axes : 057 -24 027 degrees QTc Int : 452 ms Normal sinus rhythm Minimal voltage criteria for LVH, may be normal variant Nonspecific ST and T wave abnormality Abnormal ECG When compared with ECG of 24-SEP-2019 13:48, T wave abnormality is now more evident in anterolateral leads Confirmed by Aniceto Nieto ([id number]) on 09/25/2019 11:09:19 PM Referred By: [facility] Confirmed By:Aniceto Nieto
[2019-09-26 06:14] LABS: Basophils # (auto) 0.02 K/uL (0-0.2); Basophils % (auto) 0.2 %; Eosinophils # (auto) 0.14 K/uL (0-0.5); Eosinophils % (auto) 1.6 %; Hematocrit (blood only) 37.3 % (42-52); Hemoglobin 12.8 g/dL (14.0-18.0); Immature Granulocytes # (auto) 0.01 K/uL (0.00-0.02); Immature Granulocytes % (auto) 0.1 %; Lymphocytes % (auto) 33.9 %; Mean Corpuscular Hemoglobin 29.9 pg (25-34); Mean Corpuscular Hgb Conc 34.3 g/dL (32-36); Mean Corpuscular Volume 87.1 fL (80-100); Mean Platelet Volume 9.4 fL (7.4-10.4); Monocytes # (auto) 0.45 K/uL (0.11-0.59); Monocytes % (auto) 5.1 %; Neutrophils # (auto) 5.23 K/uL (1.4-6.5); Neutrophils % (auto) 59.1 %; Platelet Count 329 K/uL (130-400); RDW Coefficient of Variation 13.7 % (11.5-14.5); RDW Standard Deviation 43.5 fL (36.4-46.3); Red Blood Count 4.28 M/uL (4.7-6.1); White Blood Count 8.85 K/uL (4.8-10.8)
[2019-09-26 06:45] LABS: Albumin Globulin Ratio 0.7 (0.9-2); Albumin Level 3.3 gm/dl (3.4-5.0); BUN Creatinine Ratio 15.6 (10-20); Bilirubin,Total 0.6 mg/dl (0.2-1); Calcium 9.3 mg/dl (8.5-10.1); Creatinine Clr Calc Pharmacy 183.2 ml/min; Est GFR (Non-African American) 109.6; Globulin 4.6 gm/dl (2.5-4.0); Total Protein 7.9 gm/dl (6.4-8.2)
[2019-09-26] MEDS: CHLORTHALIDONE 25 MG TAB PO SCH (07:45)
[2019-09-26] MEDS ORDERED: POTASSIUM CHLORIDE 20 MEQ TABCR PO STA (08:25)
[2019-09-26] MEDS: INSULIN ASPART 100 UNITS/ML 3 ML PEN SC SCH ×2 (08:43→12:13)
[2019-09-26] MEDS: OXYCODONE/ACETAMINOPHEN 5mg/325mg TAB PO PRN (08:50)
--- NOTE | 2019-09-26 08:51 | Cardiology Progress Note ---
Date of Service September 26, 2019 Assessment & Plan (1) Angina at rest: (2) Chest pain: (3) Elevated troponin: (4) Hyperlipidemia: (5) Hypertension: ASSESSMENT/PLAN: 1. Angina/Chest pain: Symptoms were concerning for angina but no significant CAD. Likely related to LVH and uncontrolled hypertension/hypertensive emergency. Recommend optimization of blood pressure. Amlodipine has been adjusted to 10 mg daily. Chlorthalidone initiated yesterday by primary service. Overall, blood pressure has improved from presentation but is intermittently elevated. Continue beta-deena and MANDA-inhibitor. Could also consider titrating atenolol to 75 mg daily with close watch of heart rate. 2. Elevated troponin: Likely due to severe hypertension in the setting of LVH. No significant CAD. 3. Hypertension/Hypertensive Emergency: Blood pressure overall improved but continues to be intermittently elevated. He also missed his antihypertensive agents the night prior to presentation. Optimize blood pressure control as above. 4. Dyslipidemia: On statin therapy. 5. Headache: As per primary service. Headache was present when he presented to the emergency department and has been mostly constant with some intermittent relief with pain medications. No other focal neurologic deficit. 6. Disposition: Aspirin therapy not necessary from a cardiac perspective. Patient care has been discussed with Dr. Moeller of the primary hospitalist service. Please call with other questions or concerns. Subjective He feels much better today. No chest pain, shortness of breath, syncope, near- syncope, palpitations. No further diarrhea or vomiting. He continues to have a left-sided headache which was present on presentation and has intermittently improved with pain medication. He denies any other neurologic issue. He denies edema. He denies bleeding. His right radial cath site has not been painful. Review of systems: As above. Physical Exam Physical Exam: Gen.: No acute distress. Alert and oriented. HEENT: Anicteric sclera. Neck: Thick neck. Cardiac: Regular. Normal S1-S2. No murmurs, rubs, or gallops. Pulmonary: Clear to auscultation bilaterally without wheezes, rales, or rhonchi. Abdomen: Soft, nontender, nondistended, with normoactive bowel sounds. No bruits noted. Extremities: 2+ radial pulses bilaterally. Right radial cath site is clean, dry, and intact without erythema or discharge. No edema or cyanosis. Psychiatric: Affect appears appropriate. Results & Data Vital Signs (Past 12 Hours) Vital Signs Temp Pulse Resp BP Pulse Ox 09/26/19 07:13 36.7 C 61 19 161/98 H 97 09/26/19 05:05 36.7 C 64 19 131/79 96 09/25/19 23:33 36.8 C 62 18 136/83 97 Laboratory Results Laboratory Results - last 24 hr 09/25/19 09/25/19 09/25/19 08:27 11:30 14:19 WBC RBC Hgb Hct MCV MCH MCHC RDW Std Deviation RDW Coeff of Kiersten Plt Count MPV Immature Gran % (Auto) Neut % (Auto) Lymph % (Auto) Lamb % (Auto) Eos % (Auto) Baso % (Auto) Immature Gran # (Auto) Neut # (Auto) Lymph # (Auto) Lamb # (Auto) Eos # (Auto) Baso # (Auto) APTT 86.5 H* PTT Ratio 3.2 Activ Coag Time Kaolin 147 H Sodium 139 Potassium 3.2 L Chloride 105 Carbon Dioxide 30 Anion Gap 4.0 BUN 14 Creatinine 0.96 Est Cr Clr Drug Dosing 147.9 Est GFR ( Amer) 110.2 Est GFR (Non-Af Amer) 95.1 BUN/Creatinine Ratio 14.7 Glucose 166 H POC Glucose Calcium 8.6 Total Bilirubin AST ALT Alkaline Phosphatase Total Protein Albumin Globulin Albumin/Globulin Ratio 09/25/19 09/25/19 09/26/19 16:23 20:11 05:57 WBC 8.85 RBC 4.28 L Hgb 12.8 L Hct 37.3 L MCV 87.1 MCH 29.9 MCHC 34.3 RDW Std Deviation 43.5 RDW Coeff of Kiersten 13.7 Plt Count 329 MPV 9.4 Immature Gran % (Auto) 0.1 Neut % (Auto) 59.1 Lymph % (Auto) 33.9 Lamb % (Auto) 5.1 Eos % (Auto) 1.6 Baso % (Auto) 0.2 Immature Gran # (Auto) 0.01 Neut # (Auto) 5.23 Lymph # (Auto) 3.00 Lamb # (Auto) 0.45 Eos # (Auto) 0.14 Baso # (Auto) 0.02 APTT PTT Ratio Activ Coag Time Kaolin Sodium Potassium Chloride Carbon Dioxide Anion Gap BUN Creatinine Est Cr Clr Drug Dosing Est GFR ( Amer) Est GFR (Non-Af Amer) BUN/Creatinine Ratio Glucose POC Glucose 118 H 141 H Calcium Total Bilirubin AST ALT Alkaline Phosphatase Total Protein Albumin Globulin Albumin/Globulin Ratio 09/26/19 09/26/19 09/26/19 05:57 07:07 07:07 WBC RBC Hgb Hct MCV MCH MCHC RDW Std Deviation RDW Coeff of Kiersten Plt Count MPV Immature Gran % (Auto) Neut % (Auto) Lymph % (Auto) Lamb % (Auto) Eos % (Auto) Baso % (Auto) Immature Gran # (Auto) Neut # (Auto) Lymph # (Auto) Lamb # (Auto) Eos # (Auto) Baso # (Auto) APTT PTT Ratio Activ Coag Time Kaolin Sodium 139 Potassium 3.0 L Chloride 106 Carbon Dioxide 27 Anion Gap 6.0 BUN 12 Creatinine 0.77 Est Cr Clr Drug Dosing 183.2 Est GFR ( Amer) 127.0 Est GFR (Non-Af Amer) 109.6 BUN/Creatinine Ratio 15.6 Glucose 119 H POC Glucose 124 H Calcium 9.3 Total Bilirubin 0.6 AST 12 L ALT 30 Alkaline Phosphatase 129 H Total Protein 7.9 Albumin 3.3 L Globulin 4.6 H Albumin/Globulin Ratio 0.7 L Diagnostic Findings Telemetry personally reviewed: Sinus rhythm. Medications Administered Current Inpatient Medications Acetaminophen (Tylenol) 650 mg PO Q4H PRN PRN Reason: Pain or Fever Stop: 10/24/19 13:10 Last Admin: 09/26/19 07:44 Dose: 650 mg Documented by: Al Hydrox/Mg Hydrox/Simethicone (Maalox) 15 ml PO Q4H PRN PRN Reason: Dyspepsia Stop: 10/24/19 13:10 Amlodipine Besylate (Norvasc) 10 mg PO [facility] Stop: 10/25/19 20:59 Last Admin: 09/25/19 20:51 Dose: 10 mg Documented by: Aripiprazole (Abilify) 10 mg PO [facility] Stop: 10/24/19 20:59 Last Admin: 09/25/19 20:52 Dose: 10 mg Documented by: Aspirin (Ecotrin Ectab) 81 mg PO [facility] Stop: 10/24/19 20:59 Last Admin: 09/25/19 20:52 Dose: 81 mg Documented by: Atenolol (Tenormin) 50 mg PO [facility] Stop: 10/24/19 20:59 Last Admin: 09/25/19 20:52 Dose: 50 mg Documented by: Atorvastatin Calcium (Lipitor) 40 mg PO [facility] Stop: 10/24/19 20:59 Last Admin: 09/25/19 20:52 Dose: 40 mg Documented by: Benztropine Mesylate (Cogentin) 2 mg PO [facility] Stop: 10/24/19 20:59 Last Admin: 09/25/19 20:52 Dose: 2 mg Documented by: Chlorthalidone (Hygroton) 25 mg PO [facility] Stop: 10/25/19 15:59 Last Admin: 09/26/19 07:45 Dose: 25 mg Documented by: Dextrose (Dextrose 50%) 25 - 50 ml IV UD PRN; Protocol PRN Reason: Hypoglycemia Protocol Stop: 10/24/19 13:10 Glucagon (Glucagen) 1 mg SQ UD PRN; Protocol PRN Reason: Hypoglycemia Protocol Stop: 10/24/19 13:10 Glucose (Dex4 Glucose) 4 - 8 tabs PO UD PRN; Protocol PRN Reason: Hypoglycemia Protocol Stop: 10/24/19 13:10 Glucose (Glucose 40%) 15 - 30 gm PO UD PRN; Protocol PRN Reason: Hypoglycemia Protocol Stop: 10/24/19 13:10 Hydralazine HCl (Apresoline) 10 mg PO Q4H PRN PRN Reason: high blood perssure Stop: 10/24/19 13:10 Insulin Aspart (Novolog Flexpen) 0 units SC [facility] Stop: 10/25/19 16:29 Last Admin: 09/26/19 08:43 Dose: 9 units Documented by: Insulin Glargine (Lantus Per Unit) 0 units SQ [facility]; Protocol Stop: 10/25/19 20:59 Last Admin: 09/25/19 20:55 Dose: Not Given Documented by: Lisinopril (Zestril) 40 mg PO [facility] Stop: 10/24/19 20:59 Last Admin: 09/25/19 20:51 Dose: 40 mg Documented by: Magnesium Hydroxide (Milk Of Magnesia) 30 ml PO Q12H PRN PRN Reason: Constipation Stop: 10/24/19 13:10 Miscellaneous (Carbohydrates For Hypoglycemia) 15 - 30 gm PO UD PRN PRN Reason: Hypoglycemia Protocol Stop: 10/24/19 13:10 Miscellaneous Information (Consult Glycemic Management Pharmacy) 1 ea N/A UD PRN; Protocol PRN Reason: Consult Stop: 10/24/19 13:19 Nitroglycerin (Nitrostat) 0.4 mg SL UD PRN PRN Reason: Chest Pain Stop: 10/24/19 13:10 Ondansetron HCl (Zofran) 4 mg IV Q6H PRN PRN Reason: Nausea Stop: 10/24/19 13:10 Last Admin: 09/25/19 19:11 Dose: 4 mg Documented by: Oxycodone/Acetaminophen (Percocet 5mg/325mg) 1 tab PO Q4H PRN PRN Reason: Pain Stop: 10/08/19 20:53 Last Admin: 09/25/19 14:56 Dose: 1 tab Documented by: Polyethylene Glycol (Miralax Powder Packet) 17 gm PO DAILY PRN PRN Reason: Constipation Stop: 10/24/19 13:10 Sertraline HCl (Zoloft) 200 mg PO HS [facility] Stop: 10/24/19 20:59 Last Admin: 09/25/19 20:53 Dose: 200 mg Documented by: Trazodone HCl (Desyrel) 200 mg PO HS [facility] Stop: 10/24/19 20:59 Last Admin: 09/25/19 20:53 Dose: 200 mg Documented by: PG Care Time/CCT Total # of Minutes Spent Total Time Spent with Patient: Total time spent is greater than 50% in coordination of care (as documented) at patient's floor/unit and/or counseling patient: (1) Hyperlipidemia Hyperlipidemia type: mixed hyperlipidemia Qualified Code(s): E78.2 - Mixed hyperlipidemia (2) Chest pain Chest pain type: unspecified Qualified Code(s): R07.9 - Chest pain, unspecified (3) Hypertension Hypertension type: unspecified Qualified Code(s): I10 - Essential (primary) hypertension
[2019-09-26] MEDS ORDERED: KETOROLAC 30 MG/ML VIAL IV ONE (12:25)
--- NOTE | 2019-09-26 12:29 | Post Anesthesia Assessment ---
Date of Service September 26, 2019 Post Sedation Assessment Vital Signs Temp Pulse Pulse Resp BP Pulse Ox 09/26/19 11:45 36.7 C 64 18 138/86 96 09/26/19 08:47 169/84 H 09/26/19 08:00 62 09/26/19 07:13 36.7 C 61 19 161/98 H 97 09/26/19 05:05 36.7 C 64 19 131/79 96 09/25/19 23:33 36.8 C 62 18 136/83 97 09/25/19 20:40 37 C 09/25/19 19:34 75 18 160/90 H 97 09/25/19 14:29 71 155/93 H 95 09/25/19 13:34 65 148/96 H 95 09/25/19 13:19 65 146/94 H 96 09/25/19 13:04 58 L 137/93 96 09/25/19 12:49 70 16 124/85 99 Recovery Score Activity: Moves 4 extremities Respiration: Deep Breath/Cough Circulation: +/-20% PreAnes Value Consciousness: Fully Awake Oxygen Saturation: > 92% On Room Air Post Anesthesia Score: 10 Discharge Sedation Level of Care: Fast Track Phase II Post Sedation Plan On clinical assessment, the patient appears to have tolerated the sedation without complications. Patient is recovering as anticipated. Patient will continue to be monitored by nursing and may be discharged when sedation discharge criteria are met per below protocol. Upon Completions of procedure up to 15 minutes continue every 5 minute vital signs and the P.A.R. score; then discharge to a Phase I or Fast Track to Phase II per the following guidelines: * Discharge Patient to appropriate Phase II area if PAR is 8 or greater or return to pre- procedure baseline. The post - procedure orders will be as directed. * If PAR score is less than 8 or not return to pre-procedure baseline then patient will follow Phase I monitoring till PAR is reached for Phase II. The Phase I may be done in procedure room or may call to secure a Phase I area. * If naloxone or flumazenil are used for reversal, hold in Phase I for continued monitoring from when last reversal dose was given for a minimum of 60 minutes or longer pending the nurse and/or physician discretion of patient condition before discharge to Phase II. Please call the Sedation Physician to re-evaluate and complete post-note for discharge to Phase II area. Do NOT discharge from procedure sedation or Phase 1 until post- sedation evalua tion note is complete by procedure /sedation MD Sedation Discharge Instructions to be given to the patient at discharge to home.
--- NOTE | 2019-09-26 13:15 | Discharge Summary ---
Date of Service September 26, 2019 Admission HPI Per Admitting Provider Patient is a 44 years old male from [facility] with past medical history of hypertension, hyperlipidemia,____, who was brought to the emergency room complaining of chest pain which lasted over 30 minutes and radiated to his jaw and left extremity and started from the rest. Patient reports that pain resolved after he received nitroglycerin and aspirin. Patient had nuclear stress test June 20, 2019 was not significant for any abnormality. Patient denies fever, chills, headache, abdominal pain frequency or urgency. Labs are reviewed: Sodium 138, potassium 3.5, chloride 104, carbon dioxide 32, anion gap 2, GFR 123.8, hemoglobin A1c 8.4, magnesium 2, AST 15, ALT 33, alkaline phosphatase 124, troponin 0.0 61, total protein 7.6, albumin 3.4, globulin 4.2, lipase 174, TSH 2.03, WBCs 5, hemoglobin 12.6, hematocrit 37.6, platelets 311. PT 10.4, INR 1, APTT 28.2. EKG shows normal sinus rhythm with left ventricular hypertrophy and left axis deviation with ventricular rate of 68 bpm and QT interval of 444. There are some nonspecific T wave abnormalities in the lateral leads V4, V5 and V6. Chest x-rays are without acute process. There is no pleural effusion, no pneumothorax, cardiac silhouette is normal size. Lungs are clear. Decision was made to admit patient to PCU on telemetry for chest pain and elevated first troponin and to rule out acute coronary syndrome. Admission Exam Per Admitting Provider Constitutional: WD/WN, vitals as above well developed Eyes: PERRL, conjunctivae normal, anicteric sclerae ENMT: external ear and nose normal, oropharynx normal Neck: trachea midline, no thyromegaly Respiratory: normal respiratory effort, lungs clear to auscultation Cardiovascular: RRR, no murmur, no edema Gastrointestinal (Abdomen): normal bowel sounds, soft, nontender, no hepatosplenomegaly Musculoskeletal: no cyanosis or clubbing, extremities motor strength 5/5 Skin: no rashes, warm and dry Neurologic: patellar DTR's 2+ bilat, sensation intact Psychiatric: A+Ox3, euthymic affect Genitourinary: no testicular masses, no penis abnormality Lymphatic: no cervical or axillary lymphadenopathy Principal Diagnosis Hypertensive emergency Probable migrainous type headache Type 2 diabetes mellitus Hypokalemia Discharge Exam Constitutional WD/WN, vitals as above + obese Eyes + anicteric sclerae; pupils not irregular ENMT external ear and nose normal, oropharynx normal Neck + short neck Respiratory normal respiratory effort, lungs clear to auscultation Cardiovascular Rate/Rhythm: regular rate and regular rhythm Heart Sounds: normal S1 and normal S2; no murmur Vessels: no JVD Extremities: normal capillary refill and + pedal edema (trace b/l) Gastrointestinal (Abdomen) normal bowel sounds, soft, nontender, no hepatosplenomegaly Musculoskeletal no cyanosis or clubbing, extremities motor strength 5/5 Skin no rashes, warm and dry Neurologic moves all extremities and awake; no focal motor deficits and not confused Psychiatric A+Ox3, euthymic affect Lymphatic + cervical lymphadenopathy (x1 left posterior cervical); no subclavicular lymphadenopathy Discharge Data Allergies Allergy/AdvReac Type Severity Reaction Status Date / Time No Known Allergies Allergy Unverified 09/24/19 11:15 Consultations 09/24/19 11:36 ED Decision to Admit Stat 09/24/19 13:11 Consult Cardiology Routine Procedures Performed Operation Date: 09/25/19 11:00 Actual Procedures p Cath, Left with Cors and Vent - Aniceto Nieto MD s Cineradiography w/Routine Exam - Aniceto Nieto MD Ordered Studies 09/25/19 07:27 CL Cath Imgs for PACS use only Routine Impression: 1. No significant CAD. 2. Mildly elevated LVEDP. 3. No significant aortic stenosis. 4. Hypertension Hospital Course (1) Hypertensive emergency: Manuel Ferris is a 44 year old male admitted to [facility] from September 24 to 2019 due to chest pain and high blood pressure. He underwent cardiac catheterization showing no significant coronary artery disease. His pain resolved with treatment for hypertension. Given small elevated troponin rise and severe hypertension he was diagnosed with hypertensive urgency with demand ischemia. This was somewhat precipitated by him missing his medications on Tuesday night prior to waking up with this episode. Recommend giving amlodipine and chlorthalidone in the morning to avoid missing all his anti-hypertensives if he misses one medication round in the future. Blood pressure is now more stable on increased dose of amlodipine from 5 to 10mg daily and addition of chlorthalidone. His potassium has also been low (possibly due to diarrhea from recent antibiotic use) and therefore he has been started on supplementation for this as prescribed; please repeat BMP in 1 week to determine if this is required longer term. Potassium 3.0 on discharge. Consider secondary causes of hypertension workup if blood pressure remains uncontrolled, given hypokalemia consider primary aldosteronism. [facility]. In addition his HbA1C was 6.7 and glucose elevated during his admission. Therefore this was diagnostic of Type 2 diabetes mellitus. Recommend starting on metformin once acute diarrhea fully resolved and BMP stable in one week. Kind regards, Dr Irving Moeller (2) Chest pain: (3) Elevated troponin: (4) Hyperlipidemia: (5) Depression: (6) Diarrhea: (7) Headache: Total Time Total Time Spent Total Time Spent (In Minutes): 55 Total Time Includes: Examination of the Patient, Discharge Planning, Medication Reconciliation and Communication With Other Providers (Dr Jane, Dr Sorto) Discharge Plan Discharge Items Patient Disposition: [facility] Reason For Visit: CHEST PAIN Discharge Diagnosis: Hypertensive emergency Probable migrainous type headache Type 2 diabetes mellitus Hypokalemia Activity: Resume your previous activity Non-emergency contact: Primary Care Provider Call non-emergency contact if: you have any medication questions and your symptoms worsen Follow-up/Referrals: Ronni ALVAREZ [Primary Care Provider] - Diet: Carb Consistent or DM2 Ambulatory Orders: Basic Metabolic Panel (Routine) Timeframe: 1 Week Location: Determined by Patient Ordered By: Irving Delvalle Attending Provider Instructions: Manuel Ferris is a 44 year old male admitted to [facility] from September 24 to 2019 due to chest pain and high blood pressure. He underwent cardiac catheterization showing no significant coronary artery disease. His pain resolved with treatment for hypertension. Given small elevated troponin rise and severe hypertension he was diagnosed with hypertensive urgency. This was somewhat precipitated by him missing his medications on Tuesday night. Recommend giving amlodipine and chlorthalidone in the morning to avoid missing all his anti-hypertensives if he misses one medication round in the future. Blood pressure is now more stable on increased dose of amlodipine from 5 to 10mg daily and addition of chlorthalidone. His potassium has also been low (possibly due to diarrhea from recent antibiotic use) and therefore he has been started on supplementation for this as prescribed; please repeat BMP in 1 week to determine if this is required longer term. Potassium 3.0 on discharge. Consider secondary causes of hypertension workup if blood pressure remains uncontrolled, given hypokalemia consider primary hyperaldosteronism. Care was discussed with Dr Jane from [facility] on discharge. In addition his HbA1C was 6.7 and glucose elevated during his admission. Therefore this was diagnostic of Type 2 diabetes mellitus. Recommend starting on metformin once acute diarrhea fully resolved and BMP stable in one week. Kind regards, Dr Irving Moeller POST CARDIAC CATHETERIZATION ACTIVITY RECOMMENDATIONS: Excess manipulation of the wrist should be avoided for the next 24-48 hours. * No lifting over 2 pounds (approximately a 1/2 gallon of milk) with the utilized arm for 24 hours. * No strenuous activity such as bowling or tennis for 3 days. * Keep the site of the procedure covered with a bandage for 24 hours. *You may shower the day after the procedure. Do not take a tub bath or submerge the puncture site in water for the next 3 days. *Do not operate any motorized equipment for 3 days. SPECIAL CARE INSTRUCTIONS: The site may be slightly bruised and sore following your procedure. Should any of the following occur, contact the Dr. who performed your procedure. 1. Redness/inflammation, swelling, chills, or fever, or colored drainage at pro cedure site within 3-7 days after your procedure. 2. Coldness, discoloration, ongoing numbness, severe pain, or swelling. Expect mild tingling of hand and tenderness at the puncture site for up to three days. If this persists beyond three days, or other symptoms develop, notify the Dr. who performed your procedure. BLEEDING: If the procedure site on your wrist begins to bleed, do not panic 1. Place 1 or 2 fingers firmly just slightly above the insertion site to stop the bleeding. You may be able to feel your pulse as you hold pressure. 2. Lift your finger after 5 minutes to see if the bleeding has stopped. 3. Once the bleeding has stopped, gently wipe the wrist area clean with a bandage. * If the bleeding from your wrist does not stop after 10 minutes, or if there is a large amount of bleeding or spurting, call 911 (do not drive yourself to the hospital). SKIN IRRITATION: * You may experience some redness and/or swelling in the area where radiation was administered. If any skin irritation occurs, please contact your family physician. FOLLOW UP VISIT: Keep any scheduled doctor appointments. Pending Studies at Discharge: No Stand-Alone Forms: Call Back Authorization, My [facility] Skilled Items Patient informed of condition?: Yes Discharge Level of Care: Other Communicable Disease: No Discharge Prognosis: Stable Lines: None Urinary Catheter: No Medications and DC Order Prescriptions: New chlorthalidone 25 mg Tablet 25 mg PO QAM Qty: 30 RF: 0 potassium chloride 20 mEq tablet extended release 40 meq PO DAILY Qty: 60 RF: 0 Continued atorvastatin 40 mg Tablet 40 mg PO HS RF: 0 sertraline [Zoloft] 100 mg Tablet 200 mg PO HS RF: 0 trazodone 100 mg Tablet 200 mg PO HS RF: 0 benztropine 1 mg Tablet 2 mg PO HS RF: 0 aspirin [Aspirin Childrens] 81 mg Tablet,Chewable 81 mg PO HS RF: 0 lisinopril 40 mg Tablet 40 mg PO HS RF: 0 atenolol 50 mg Tablet 50 mg PO HS RF: 0 aripiprazole 10 mg Tablet 10 mg PO HS RF: 0 Changed amlodipine 5 mg Tablet 10 mg PO QAM Qty: 0 RF: 0 Discharge Orders: Discharge Order (Routine); Ordered 09/26/19 Ordered By: Irving Moeller Admission Data Admit Date/Time: 09/24/19 16:28 Attending Provider: Irving Moeller Admit Provider: Lilly Bravo Primary Care Provider: Ronni ALVAREZ Other Providers: Aniceto Nieto ; Lilly Bravo
== END 2019-09-26 15:24 | DRG 287 ==
LOC: ED 09:31 → 2S 09:31 → SUATTDRO 16:28